=== PATIENT | female | born 1955 | race Caucasian/White ===

== ENCOUNTER → 2017-12-27 | Outpatient (CLI) | payer OTHER | END | disposition home or self-care (01) | LOC: C.MAMM 15:22 | PROVIDERS: ATTEND Nurse Practitioner | DX: M81.0 Age-related osteoporosis without current pathological fracture (principal) ==

== ENCOUNTER 2025-02-04 10:07 | Inpatient (IN) ==
--- NOTE | 2025-02-04 10:20 | Emergency Department Note ---
Impression & Plan Hypotension, Pneumonia, Leukocytosis, Anemia, Elevated lactic acid level ED Provider Note NAME: BUNNY CHERRY AGE: 69 SEX: F : 1955 ARRIVES VIA: Ambulance INFORMANT: [Patient][ems] ED PROVIDER(S): [Setf Adamson MD] CHIEF COMPLAINT: Hypotension HISTORY OF PRESENT ILLNESS: The patient is a 69-year-old female who states that last week, her doctor's office told her she had a lung infection and gave her antibiotics and steroids. She states that she was called by the pharmacy to start a second round of antibiotics today but has not yet picked up the prescription. Today, the patient was feeling dizzy and lightheaded to stand. She had a fall while she was at the sink, she is not sure if she lost consciousness, she is not sure if she struck her head but she was able to get up after. No current headache. The patient was hypoxic on the way to our ER, she was also hypotensive. Her blood pressure improved with a 500 cc saline bolus given in route. Patient currently denies any chest pain or dyspnea. No abdominal pain. She states that she only really seems to have symptoms when she tries to stand or move. Of note, the patient carries a history of hypertension, she did take her blood pressure medication this morning but, felt dizzy even before the meds were taken PMHx/PSHx/Social Hx: See Below PHYSICAL EXAM: GENERAL: Patient is in no acute distress. Thin and frail. HEENT: No acute trauma, normocephalic atraumatic, mucous membranes moist, no nasal congestion. NECK: No stridor, no adenopathy, no meningismus, trachea is midline. Nontender C-spine. LUNGS: Clear to auscultation bilaterally when listening anterior, no wheeze, no rhonchi, breath sounds equal. HEART: Without murmurs gallops or rubs, regular rate and rhythm. ABDOMEN: Soft, nontender, no peritonitis. EXTREMITIES: No cyanosis, full range of motion of all the joints without pain or difficulty. NEUROLOGIC: Oriented x 3, no acute motor or sensory deficits, no focal weakness. SKIN: No jaundice, no diaphoresis. Pale. DIFFERENTIAL DIAGNOSIS: Dehydration, bacteremia or sepsis, pneumonia, UTI, electrolyte imbalance, anemia, intracranial injury, among others. EMERGENCY DEPARTMENT PROCEDURES: MEDICAL DECISION MAKING: There is a significant leukocytosis, this would be consistent with infection. The patient is anemic with a hemoglobin of 7.4. I have no old values to use for comparison. Platelet count was high at 638. No worrisome coagulopathy. CBC differential did show findings of a bandemia. VBG did not show acidosis or significant CO2 retention. Sodium somewhat low at 130. No renal failure. Lactic acid level was elevated at over 3, this is consistent with dehydration and/or infection. No worrisome liver enzyme elevation. ECG showed a sinus rhythm, no ischemia or ST elevation. Cardiac enzyme testing x 1 is not consistent with acute cardiac injury. Urinalysis does not show findings of infection. Chest x-ray shows a right sided pneumonia. Chest CT does not show PE, a right sided pneumonia was seen. Brain CT shows no acute bleed or mass effect. C-spine CT shows no acute fracture. On exam, the patient was somewhat pale, appeared dehydrated and was initially hypotensive. The patient was aggressively managed. She received IV saline. She was given 1750 cc of IV saline in total when the 500 cc saline bolus prehospital is included. This should suffice for sepsis protocol at 30 cc/kg based on the actual body weight. The patient was given IV cefepime as antibiotic coverage. On reassessment, the patient's blood pressure has improved, she is not in need of IV pressors. I talked to the patient about her findings and the need for a hospital stay. I did speak with case management, the on-call hospitalist was consulted. Prior/Outside records/notes reviewed: Today's EMS notes describing her presentation and transport at this hospital. ECG per my interpretation: Indication was dizziness. The ECG shows a sinus rhythm with some PACs. The rate is 82. There is no ST elevation, no PVCs. The QTc is 462. Continuous Cardiac Monitoring per my interpretation: An order was placed for continuous cardiac monitoring. The monitor shows a rate of 81 with normal sinus rhythm. Imaging/x-ray results per my interpretation: Chest x-ray shows a right sided pneumonia. No pneumothorax or CHF. Chronic Medical/Social conditions affecting care: None Care/Management discussed with: Case management, the on-call hospitalist. Level of care consideration(s): After review of the information above and other included data: --I believe the patient requires escalation of care to admission Critical Care Note: I have personally spent 52 minutes of critical care time in the direct management of this patient. This includes bedside care, interpretation of diagnostic studies, and testing, discussion with consultants, patient, and family members, and other required patient management activities. This 52 minutes is in excess of all separately billable procedures. DISPOSITION: Admission Past Med/Surg History Problem List (Updated 02/04/25 @ 17:05 by Stef Adamson MD) Elevated lactic acid level (Acute) Anemia (Acute) Leukocytosis (Acute) Pneumonia (Acute) Hypotension (Acute) Sepsis Acute hypoxic respiratory failure Medical History Pneumonia Social History Smoking Status: Current every day smoker Tobacco Type: Cigarettes Cigarettes Per Day: 20-30; Second Hand Exposure: No; Do You Dip or Chew Tobacco: No; Tobacco Cessation Education Requested by Patient: No Hx Alcohol Use: No Hx Substance Use: Yes Substance Use Type Other:: carlos 02-03-25 Preferred Language: Swedish Communication Ability: Effective 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 Beliefs That Will Affect Care: None Current Living Situation: Alone Other Information That Helps Us Care for You: No Feels Safe at Home: Yes Safety Concerns: Feels Safe At This Time Assistive Devices: Glasses Assistive Devices Comment: partial bottom plate in on admit Allergies Allergies Allergy/AdvReac Type Severity Reaction Status Date / Time Sulfa (Sulfonamide Allergy Mild doesnt Unverified 02/04/25 13:20 Antibiotics) remember Home Meds Home Medications Medication Instructions Recorded Confirmed albuterol sulfate 0.63 mg/3 mL 0.63 mg inhalation UD PRN sob 02/04/25 02/04/25 solution for nebulization albuterol sulfate 90 mcg/actuation 1 puff inhalation Q6H PRN sob 02/04/25 02/04/25 aerosol inhaler fluticasone 250 mcg-salmeterol 50 1 inh inhalation BID 02/04/25 02/04/25 mcg/dose blistr powdr for inhalation gabapentin 300 mg capsule 300 mg PO BID 02/04/25 02/04/25 lisinopril 40 mg tablet 40 mg PO DAILY 02/04/25 02/04/25 meloxicam 7.5 mg tablet 7.5 mg PO BID 02/04/25 02/04/25 metformin 1,000 mg tablet 1,000 mg PO DAILY 02/04/25 02/04/25 tizanidine 4 mg tablet 4 mg PO Q6H PRN Muscle Spasm 02/04/25 02/04/25 Results & Data (ED) Vital Signs Vital Signs - 24 hr 02/04/25 10:07 02/04/25 10:30 02/04/25 10:31 Temperature 36.5 C Temperature Source Oral Pulse Rate 80 81 81 Pulse Rate [Apical] Pulse Rate from SpO2 Sensor Respiratory Rate 16 17 Respiratory Effort / Characteristics Non-Labored Spontaneous Respiratory Depth Normal Respiratory Pattern Regular Blood Pressure 88/63 L 113/69 Blood Pressure [Right Arm] Blood Pressure Mean 71 83 Blood Pressure Mean [Right Arm] Blood Pressure Position [Right Arm] Pulse Oximetry 90 Oxygen Delivery Method Sepsis Recent Fever Within 48 Hours No Sepsis New/Unexplained Change in Mental Status No Sepsis Action Taken by Nursing No Action Required 02/04/25 10:33 02/04/25 10:45 02/04/25 10:45 Temperature Temperature Source Pulse Rate 80 Pulse Rate [Apical] Pulse Rate from SpO2 Sensor 151 H Respiratory Rate 15 Respiratory Effort / Characteristics Respiratory Depth Respiratory Pattern Blood Pressure 120/71 120/71 Blood Pressure [Right Arm] Blood Pressure Mean 81 81 Blood Pressure Mean [Right Arm] Blood Pressure Position [Right Arm] Pulse Oximetry 90 Oxygen Delivery Method Room Air Room Air Sepsis Recent Fever Within 48 Hours Sepsis New/Unexplained Change in Mental Status Sepsis Action Taken by Nursing 02/04/25 11:00 02/04/25 12:06 02/04/25 12:33 Temperature Temperature Source Pulse Rate 80 83 83 Pulse Rate [Apical] Pulse Rate from SpO2 Sensor 81 82 81 Respiratory Rate 27 H 19 26 H Respiratory Effort / Characteristics Respiratory Depth Respiratory Pattern Blood Pressure 132/77 Blood Pressure [Right Arm] Blood Pressure Mean 99 Blood Pressure Mean [Right Arm] Blood Pressure Position [Right Arm] Pulse Oximetry 94 97 97 Oxygen Delivery Method Room Air Sepsis Recent Fever Within 48 Hours Sepsis New/Unexplained Change in Mental Status Sepsis Action Taken by Nursing 02/04/25 13:00 02/04/25 13:33 02/04/25 14:03 Temperature Temperature Source Pulse Rate 83 85 Pulse Rate [Apical] 84 Pulse Rate from SpO2 Sensor 83 Respiratory Rate 16 19 19 Respiratory Effort / Characteristics Non-Labored Spontaneous Respiratory Depth Normal Respiratory Pattern Regular Blood Pressure Blood Pressure [Right Arm] 179/84 H Blood Pressure Mean Blood Pressure Mean [Right Arm] 115 Blood Pressure Position [Right Arm] Semi-fowlers Pulse Oximetry 99 98 Oxygen Delivery Method Room Air Sepsis Recent Fever Within 48 Hours Sepsis New/Unexplained Change in Mental Status Sepsis Action Taken by Detention Medications Current Medication List: was personally reviewed by me Laboratory Data Attestation: I reviewed the patient's lab results. 02/04/25 10:35 02/04/25 10:35 Lab Results 02/04/25 02/04/25 02/04/25 Range/Units 10:35 10:53 12:30 WBC 22.46 H (4.8-10.8) K/ul RBC 3.11 L (4.20-5.40) M/uL Hgb 7.4 L (12.0-16.0) g/dl Hct 23.7 L (37.0-47.0) % MCV 76.2 L (80.0-100.0) fL MCH 23.8 L (25.0-34.0) pg MCHC 31.2 L (32.0-36.0) g/dL RDW Std Deviation 57.3 H (36.4-46.3) fL RDW Coeff of Omar 20.9 H (11.5-14.5) % Plt Count 638 H (130-400) K/uL MPV 9.3 L (9.4-12.4) fL Immature Gran % (Auto) 1.0 % Neut % (Auto) 87.0 % Lymph % (Auto) 5.7 % Haines % (Auto) 6.1 % Eos % (Auto) 0.0 % Baso % (Auto) 0.2 % Neut # (Auto) 19.53 H (1.40-6.50) K/uL Lymph # (Auto) 1.29 (1.20-3.40) K/uL Haines # (Auto) 1.36 H (0.11-0.59) K/uL Eos # (Auto) 0.01 (0.00-0.50) K/uL Baso # (Auto) 0.05 (0.00-0.20) K/uL Immature Gran # (Auto) 0.22 H (0.01-0.20) K/uL Anisocytosis Present PT 12.3 H (9.0-12.0) Seconds INR 1.1 (0.9-1.1) APTT 21 (21-31) Seconds PTT Ratio 0.8 VBG pH 7.37 (7.36-7.41) VBG pCO2 44 (38-50) mmHg VBG pO2 < 20 mmHg VBG HCO3 25 mmol/L VBG O2 Saturation < 60.0 % VBG Base Excess -0.2 mEq/L Sodium 130 L (136-145) mmol/L Potassium 4.6 (3.5-5.1) mmol/L Chloride 95 L (98-107) mmol/L Carbon Dioxide 25 (21-32) mmol/L Anion Gap 10 (3-11) BUN 13 (6-23) mg/dl Creatinine 0.56 L (0.6-1.2) mg/dl Est Cr Clr Drug Dosing 76.3 ml/min eGFR 98.73 BUN/Creatinine Ratio 23.2 H (10-20) Glucose 155 H (70-99(Fasting)) mg/dl Lactate 3.6 H* 2.3 H* (0.4-2.0) mmol/L Calcium 8.4 L (8.6-10.3) mg/dl Magnesium 1.7 (1.7-2.4) mg/dl Total Bilirubin 0.4 (0.2-1.0) mg/dl Direct Bilirubin 0.1 (0-0.2) mg/dl AST 9 L (13-39) U/L ALT 12 (7-52) U/L Alkaline Phosphatase 65 (34-104) U/L Troponin I High Sens 12.9 (0-14) pg/ml Total Protein 6.1 (6.0-8.3) gm/dl Albumin 2.9 L (3.4-5.0) gm/dl Procalcitonin 0.30 (0-0.5) ng/ml Urine Color Urine Appearance (Clear) Urine pH (4.5-7.5) Ur Specific Corea (1.000-1.030) Urine Protein (Negative) Urine Glucose (UA) (Negative) Urine Ketones (Negative) Urine Blood (Negative) Urine Nitrite (Negative) Urine Bilirubin (Negative) Urine Urobilinogen (Negative) Ur Leukocyte Esterase (Negative) Urine Comment 02/04/25 Range/Units 13:26 WBC (4.8-10.8) K/ul RBC (4.20-5.40) M/uL Hgb (12.0-16.0) g/dl Hct (37.0-47.0) % MCV (80.0-100.0) fL MCH (25.0-34.0) pg MCHC (32.0-36.0) g/dL RDW Std Deviation (36.4-46.3) fL RDW Coeff of Omar (11.5-14.5) % Plt Count (130-400) K/uL MPV (9.4-12.4) fL Immature Gran % (Auto) % Neut % (Auto) % Lymph % (Auto) % Haines % (Auto) % Eos % (Auto) % Baso % (Auto) % Neut # (Auto) (1.40-6.50) K/uL Lymph # (Auto) (1.20-3.40) K/uL Haines # (Auto) (0.11-0.59) K/uL Eos # (Auto) (0.00-0.50) K/uL Baso # (Auto) (0.00-0.20) K/uL Immature Gran # (Auto) (0.01-0.20) K/uL Anisocytosis PT (9.0-12.0) Seconds INR (0.9-1.1) APTT (21-31) Seconds PTT Ratio VBG pH (7.36-7.41) VBG pCO2 (38-50) mmHg VBG pO2 mmHg VBG HCO3 mmol/L VBG O2 Saturation % VBG Base Excess mEq/L Sodium (136-145) mmol/L Potassium (3.5-5.1) mmol/L Chloride (98-107) mmol/L Carbon Dioxide (21-32) mmol/L Anion Gap (3-11) BUN (6-23) mg/dl Creatinine (0.6-1.2) mg/dl Est Cr Clr Drug Dosing ml/min eGFR BUN/Creatinine Ratio (10-20) Glucose (70-99(Fasting)) mg/dl Lactate (0.4-2.0) mmol/L Calcium (8.6-10.3) mg/dl Magnesium (1.7-2.4) mg/dl Total Bilirubin (0.2-1.0) mg/dl Direct Bilirubin (0-0.2) mg/dl AST (13-39) U/L ALT (7-52) U/L Alkaline Phosphatase (34-104) U/L Troponin I High Sens (0-14) pg/ml Total Protein (6.0-8.3) gm/dl Albumin (3.4-5.0) gm/dl Procalcitonin (0-0.5) ng/ml Urine Color Yellow Urine Appearance Clear (Clear) Urine pH 7.0 (4.5-7.5) Ur Specific Corea 1.013 (1.000-1.030) Urine Protein Negative (Negative) Urine Glucose (UA) Negative (Negative) Urine Ketones Negative (Negative) Urine Blood Negative (Negative) Urine Nitrite Negative (Negative) Urine Bilirubin Negative (Negative) Urine Urobilinogen Negative (Negative) Ur Leukocyte Esterase Negative (Negative) Urine Comment Administered Medications Albuterol (Albut/Ipratrop 3mg/0.5mg Neb 3 Ml Vial) 3 ml NEB QIDR MONSE; Protocol Stop: 03/06/25 14:59 Last Admin: 02/04/25 16:40 Dose: Not Given Documented By: LISBET Sodium Chloride (Nss) 1,000 mls @ 80 mls/hr IV .[id number] [facility] Stop: 02/07/25 15:14 Last Admin: 02/04/25 16:46 Dose: 80 mls/hr Documented By: PINEDA Insulin Aspart (Insulin Aspart Per Unit Charge) 0 units SC ACHS MONSE Stop: 03/06/25 16:29 Last Admin: 02/04/25 16:47 Dose: Not Given Documented By: PINEDA Discontinued Medications Sodium Chloride (Nss) 500 mls @ 999 mls/hr IV .Q31M ONE Stop: 02/04/25 10:48 Last Infusion: 02/04/25 11:46 Dose: Infused Documented By: Admin: 02/04/25 10:43 Dose: 999 mls/hr Documented By: GERTRUDE Cefepime HCl (Maxipime 2000mg) 2,000 mg in 20 mls @ 5 mls/min IV NOW STA; Protocol Stop: 02/04/25 10:21 Last Admin: 02/04/25 10:55 Dose: 5 mls/min Documented By: GERTRUDE Sodium Chloride (Nss) 500 mls @ 999 mls/hr IV .Q31M ONE Stop: 02/04/25 11:56 Last Infusion: 02/04/25 13:20 Dose: Infused Documented By: Admin: 02/04/25 12:28 Dose: 999 mls/hr Documented By: CEF Sodium Chloride (Nss) 250 mls @ 999 mls/hr IV .Q16M ONE Stop: 02/04/25 11:41 Last Infusion: 02/04/25 13:08 Dose: Infused Documented By: Admin: 02/04/25 12:28 Dose: 999 mls/hr Documented By: CEF Piperacillin Sod/Tazobactam Sod (Zosyn) 4.5 gm in 100 mls @ 200 mls/hr IV NOW ONE Stop: 02/04/25 15:14 Last Infusion: 02/04/25 16:24 Dose: Infused Documented By: Admin: 02/04/25 15:21 Dose: 200 mls/hr Documented By: OCTAVIA Vancomycin HCl 1,250 mg/ (Sodium Chloride) 275 mls @ 200 mls/hr IV NOW ONE Stop: 02/04/25 16:07 Last Admin: 02/04/25 16:46 Dose: 200 mls/hr Documented By: PINEDA Ioversol (Optiray 320 125ml) 59 ml IV ONCE ONE Stop: 02/04/25 11:48 Last Admin: 02/04/25 11:47 Dose: 59 ml Documented By: REGGIE Imaging Data Radiologist's Impression: Chest X-Ray 02/04/25 10:18 XR chest 1V portable CLINICAL HISTORY: Sepsis. COMPARISON STUDY: Chest CT November 28, 2024. Chest radiograph November 17, 2024. FINDINGS: There is no pneumothorax. A suspected small right pleural effusion is present. Dense right mid and lower lung consolidation has developed since prior chest radiograph and chest CT. Elevation of the right hemidiaphragm has increased. Right upper lobe opacities have improved. Right apical cavity persists. No evidence for pulmonary edema. IMPRESSION: 1. Interval development of dense right mid and lower lung consolidation with evidence for volume loss. This favors pneumonia. However, radiographic follow-up to ensure resolution is recommended to exclude the possibility of an underlying lesion. 2. Interval improvement in upper lobe airspace opacities with residual right apical cavity. 3. Small right pleural effusion. ACT 112: Negative or not required by law. Electronically signed by: Kleber Perez M.D. 02/04/2025 11:[address] 02/04/25 10:20 CT cervical spine wo con CT DOSE: 1232.4 mGy.cm CLINICAL HISTORY: 69 years-old Female with fall. Acute neck trauma status post fall COMPARISON: Head CT CTA chest study of same day TECHNIQUE: Multiple axial CT images of the cervical spine were obtained without contrast. A dose lowering technique was utilized adhering to the principles of ALARA. FINDINGS: Straightening of the normal cervical lordosis. Demineralized appearance of the bones. Prior posterior decompression with posterior interbody rods and screw fusion at C3-C6. No evidence of hardware complication on this study. Moderate to severe intervertebral disc space narrowing at C5-C6 and C6-C7 with moderate anterior bridging osteophytosis at these levels. Moderate multilevel facet arthrosis. No acute fracture or subluxation identified. Suboptimal evaluation of the central canal and neural foramen by CT technique. Emphysema. Thick-walled large cavitary focus of the right lung apex with loculated right pleural effusion. Mild wall thickening of the proximal esophagus. The visualized lung apices appear clear. IMPRESSION: 1. No acute cervical spine fracture or subluxation. 2. Degenerative and postoperative changes of the cervical spine as above. 3. Please refer to the same day CTA of the chest for discussion of the pulmonary findings. ACT 112: Negative or not required by law. The above report was generated using voice recognition software. It may contain grammatical, syntax or spelling errors. Electronically signed by: Ger Salinas M.D. 02/04/2025 12:[address] 02/04/25 10:20 CT SCAN OF THE BRAIN WITHOUT IV CONTRAST CLINICAL HISTORY: Fall. COMPARISON STUDY: None. TECHNIQUE: Unenhanced axial CT scan of the brain was performed from the vertex to the skull base. A dose lowering technique was utilized adhering to the principles of ALARA. FINDINGS: Brain parenchyma: No acute intracranial hemorrhage, midline shift or mass effect is present. Armas-white matter differentiation is preserved. There are no extra- axial fluid collections. There are no findings to suggest acute dural sinus thrombosis or acute territorial infarct. Armas-white matter hypodensities are suggestive of small vessel disease. Ventricles, sulci, cisterns: There is no hydrocephalus. The basal cisterns are patent. Calvarium: No calvarial fractures. Sinuses and mastoids: The visualized paranasal sinuses are clear. The mastoid air cells are well pneumatized. Orbits: The bony orbits are grossly intact. IMPRESSION: 1. No acute intracranial findings. 2. No calvarial fractures. ACT 112: Negative or not required by law. Electronically signed by: Kleber Perez M.D. 02/04/2025 11:54 AM Chest CTA 02/04/25 11:25 CT ANGIOGRAM OF THE CHEST CLINICAL HISTORY: Fall. Dyspnea. Pneumonia. COMPARISON STUDY: Chest CT scans dated 11/28/2024 and 1210 and 19. Chest x-ray dated 02/04/2025. TECHNIQUE: Following the IV administration of 59 cc of Optiray 320, CT angiogram of the chest was performed from the upper abdomen to the thoracic inlet utilizing the pulmonary embolus protocol. Images are reviewed in the axial, sagittal, and coronal planes. 3-D MIPS images are created and assessed. IV contrast was administered without complication. A dose lowering technique was utilized adhering to the principles of ALARA. There is streak artifact from the right arm which could not be elevated of the chest. There is also mild motion artifact. FINDINGS: Thyroid: Imaged portions of the thyroid gland are normal in size and attenuation. Thoracic aorta: There is atherosclerotic calcification of the thoracic aorta, which is normal in caliber and demonstrates standard 3-vessel arch anatomy. No dissection is seen. Pulmonary vasculature: The pulmonary trunk is normal in caliber. There are no filling defects identified in main, lobar, or segmental pulmonary branches to suggest pulmonary embolus. Heart: The heart is normal in size and without pericardial effusion. The coronary arteries are densely calcified. Lungs and pleural spaces: Evaluation of the lung parenchyma is modestly degraded by motion artifact. There is moderate emphysematous change. The trachea and central airways are clear. There is multiloculated appearing masslike consolidation throughout the right lung with cavitation and pockets of necrosis/fluid which extends from the lung base to the apex along the major fissure and in the paramediastinal region A loculation at the right apex measures approximately 7.5 x 6 x 4 cm and is similar in appearance to the 11/28/2024 examination. Paramediastinal consolidation cavitation is has somewhat increased from previous, and masslike consolidation extending into the right lower lobe along the major fissure is new from 11/28/2024. This measures approximately 14 x 8 x 7 cm in aggregate dimension. A subpleural focus of cavitary consolidation in the right upper lobe on image #174 has decreased in size from 11/28/2024. This measures approximately 3 x 1.5 cm. There is associated soft tissue thickening in the right hilar region. There are scattered calcific granulomas. There is trace pleural fluid right lung base. No airspace consolidation is seen in the left lung. A 5 mm left upper lobe pulmonary nodule on image #160 is unchanged. Mediastinum: There are calcified subcarinal nodes. No discrete lymphadenopathy is seen. Maritza: Enlarged right hilum measuring up to 11 mm short axis. No left hilar adenopathy is seen. Axillae: There is no axillary lymphadenopathy. Upper abdomen: Partially visualized upper abdominal viscera is within normal limits. Skeletal structures: The skeletal structures are osteopenic. Degenerative change and mild hyperkyphosis is noted in the thoracic spine. No lytic or blastic bony lesions are seen. IMPRESSION: 1. There is no evidence of pulmonary embolus in the main, lobar, or segmental pulmonary arteries. 2. Emphysema. 3. Extensive masslike consolidation with cavitation is seen in the right lung extending from the apex to the base along the major fissure and in the paramediastinal region as detailed above. A large right lower lobe component is new from 11/28/2024, in the appearance/time course favors a necrotizing/cavitary pneumonia. An underlying neoplastic process would be impossible to exclude. Pulmonology evaluation is advised, and follow-up to resolution is recommended. 4. A separate focus of cavitary consolidation in the right upper lobe seen on 11/28/2024 has decreased in size from previous. 5. No airspace consolidation is seen in the left lung. 6. A 5 mm left upper lobe pulmonary nodule is unchanged. 7. Additional findings as above. ACT 112: Negative or not required by law. Electronically signed by: Stef Ovalle M.D. 02/04/2025 12:19 PM Discharge Plan Visit Data Chief Complaint: Hypotension Stated Complaint: HYPOTENSION, FALL, HYPOXIA ED Provider: Stef Adamson Discharge Problem: Hypotension, Pneumonia, Leukocytosis, Anemia, Elevated lactic acid level Patient Disposition: Admitted As Inpatient Condition: Serious Discharge Instructions Interventions: ED Discharge Assessment Last Done: 02/04/25 15:30 Discharge Problem: Hypotension Qualifiers: Hypotension type: unspecified hypotension type Qualified Code(s): I95.9 - Hypotension, unspecified Pneumonia Qualifiers: Pneumonia type: due to unspecified organism Laterality: right Lung location: u nspecified part of lung Qualified Code(s): J18.9 - Pneumonia, unspecified organism Leukocytosis Qualifiers: Leukocytosis type: unspecified Qualified Code(s): D72.829 - Elevated white blood cell count, unspecified Anemia Qualifiers: Anemia type: unspecified type Qualified Code(s): D64.9 - Anemia, unspecified
[2025-02-04] MEDS: SODIUM CHLORIDE 0.9% 500 ML IV ONE ×2 (10:43→12:28)
[2025-02-04 10:52] LABS: Hematocrit (blood only) 23.7 % (37.0-47.0); Hemoglobin 7.4 g/dl (12.0-16.0); Immature Granulocytes # (auto) 0.22 K/uL (0.01-0.20); Immature Granulocytes % (auto) 1.0 %; Mean Corpuscular Hemoglobin 23.8 pg (25.0-34.0); Mean Corpuscular Volume 76.2 fL (80.0-100.0); Platelet Count 638 K/uL (130-400); RDW Standard Deviation 57.3 fL (36.4-46.3); Red Blood Count 3.11 M/uL (4.20-5.40); White Blood Count 22.46 K/ul (4.8-10.8)
[2025-02-04] MEDS: CEFEPIME 2000MG 2,000 MG/20 ML SYR IV STA (10:55)
--- NOTE | 2025-02-04 11:01 | XRay Report ---
XR chest 1V portable CLINICAL HISTORY: Sepsis. COMPARISON STUDY: Chest CT November 28, 2024. Chest radiograph November 17, 2024. FINDINGS: There is no pneumothorax. A suspected small right pleural effusion is present. Dense right mid and lower lung consolidation has developed since prior chest radiograph and chest CT. Elevation o f the right hemidiaphragm has increased. Right upper lobe opacities have improved. Right apical cavit y persists. No evidence for pulmonary edema. IMPRESSION: 1. Interval development of dense right mid and lower lung consolidation with evidence for volume loss . This favors pneumonia. However, radiographic follow-up to ensure resolution is recommended to exclu de the possibility of an underlying lesion. 2. Interval improvement in upper lobe airspace opacities with residual right apical cavity. 3. Small right pleural effusion. ACT 112: Negative or not required by law. Electronically signed by: Kleber Perez M.D. 02/04/2025 11:00 AM
[2025-02-04 11:14] LABS: Base Excess VBG -0.2 mEq/L; HCO3 VBG 25 mmol/L; Oxygen Saturation VBG < 60.0 %; PCO2 VBG 44 mmHg (38-50); PO2 VBG < 20 mmHg; pH VBG 7.37 (7.36-7.41)
[2025-02-04 11:18] LABS: Anisocytosis Present
[2025-02-04 11:19] LABS: Alanine Aminotransferase 12.0 U/L (7-52); Alkaline Phosphatase 65.0 U/L (34-104); Anion Gap 10.0 (3-11); Bilirubin,Total 0.4 mg/dl (0.2-1.0); Blood Urea Nitrogen 13.0 mg/dl (6-23); Calcium 8.4 mg/dl (8.6-10.3); Carbon Dioxide 25.0 mmol/L (21-32); Chloride 95.0 mmol/L (98-107); Creatinine Clr Calc Pharmacy 76.3 ml/min; Glucose 155.0 mg/dl (70-99(Fasting)); Magnesium 1.7 mg/dl (1.7-2.4); Potassium 4.6 mmol/L (3.5-5.1); Sodium 130.0 mmol/L (136-145); Total Protein 6.1 gm/dl (6.0-8.3)
[2025-02-04 11:31] LABS: INR 1.1 (0.9-1.1); Partial Thromboplastin Time 21 Seconds (21-31); Prothrombin Time 12.3 Seconds (9.0-12.0)
[2025-02-04] MEDS: OPTIRAY 320 125ml IV ONE (11:47)
--- NOTE | 2025-02-04 11:56 | CT Scan Report ---
CT SCAN OF THE BRAIN WITHOUT IV CONTRAST CLINICAL HISTORY: Fall. COMPARISON STUDY: None. TECHNIQUE: Unenhanced axial CT scan of the brain was performed from the vertex to the skull base. A dose lowering technique was utilized adhering to the principles of ALARA. FINDINGS: Brain parenchyma: No acute intracranial hemorrhage, midline shift or mass effect is present. Armas-whi te matter differentiation is preserved. There are no extra-axial fluid collections. There are no find ings to suggest acute dural sinus thrombosis or acute territorial infarct. Armas-white matter hypodens ities are suggestive of small vessel disease. Ventricles, sulci, cisterns: There is no hydrocephalus. The basal cisterns are patent. Calvarium: No calvarial fractures. Sinuses and mastoids: The visualized paranasal sinuses are clear. The mastoid air cells are well pneu matized. Orbits: The bony orbits are grossly intact. IMPRESSION: 1. No acute intracranial findings. 2. No calvarial fractures. ACT 112: Negative or not required by law. Electronically signed by: Kleber Perez M.D. 02/04/2025 11:54 AM
--- NOTE | 2025-02-04 12:14 | CT Scan Report ---
CT cervical spine wo con CT DOSE: 1232.4 mGy.cm CLINICAL HISTORY: 69 years-old Female with fall. Acute neck trauma status post fall COMPARISON: Head CT CTA chest study of same day TECHNIQUE: Multiple axial CT images of the cervical spine were obtained without contrast. A dose low ering technique was utilized adhering to the principles of ALARA. FINDINGS: Straightening of the normal cervical lordosis. Demineralized appearance of the bones. Prior posterior decompression with posterior interbody rods and screw fusion at C3-C6. No evidence of hard craig complication on this study. Moderate to severe intervertebral disc space narrowing at C5-C6 and C6-C7 with moderate anterior bridging osteophytosis at these levels. Moderate multilevel facet arthro sis. No acute fracture or subluxation identified. Suboptimal evaluation of the central canal and neur al foramen by CT technique. Emphysema. Thick-walled large cavitary focus of the right lung apex with loculated right pleural effu armen. Mild wall thickening of the proximal esophagus. The visualized lung apices appear clear. IMPRESSION: 1. No acute cervical spine fracture or subluxation. 2. Degenerative and postoperative changes of the cervical spine as above. 3. Please refer to the same day CTA of the chest for discussion of the pulmonary findings. ACT 112: Negative or not required by law. The above report was generated using voice recognition software. It may contain grammatical, syntax o r spelling errors. Electronically signed by: Ger Salinas M.D. 02/04/2025 12:12 PM
--- NOTE | 2025-02-04 12:21 | CT Scan Report ---
CT ANGIOGRAM OF THE CHEST CLINICAL HISTORY: Fall. Dyspnea. Pneumonia. COMPARISON STUDY: Chest CT scans dated 11/28/2024 and 1210 and 19. Chest x-ray dated 02/04/2025. TECHNIQUE: Following the IV administration of 59 cc of Optiray 320, CT angiogram of the chest was per formed from the upper abdomen to the thoracic inlet utilizing the pulmonary embolus protocol. Images are reviewed in the axial, sagittal, and coronal planes. 3-D MIPS images are created and assessed. IV contrast was administered without complication. A dose lowering technique was utilized adhering to the principles of ALARA. There is streak artifact from the right arm which could not be elevated of t he chest. There is also mild motion artifact. FINDINGS: Thyroid: Imaged portions of the thyroid gland are normal in size and attenuation. Thoracic aorta: There is atherosclerotic calcification of the thoracic aorta, which is normal in noemi matt and demonstrates standard 3-vessel arch anatomy. No dissection is seen. Pulmonary vasculature: The pulmonary trunk is normal in caliber. There are no filling defects identif ied in main, lobar, or segmental pulmonary branches to suggest pulmonary embolus. Heart: The heart is normal in size and without pericardial effusion. The coronary arteries are densel y calcified. Lungs and pleural spaces: Evaluation of the lung parenchyma is modestly degraded by motion artifact. There is moderate emphysematous change. The trachea and central airways are clear. There is multilocu lated appearing masslike consolidation throughout the right lung with cavitation and pockets of necro sis/fluid which extends from the lung base to the apex along the major fissure and in the paramediast inal region A loculation at the right apex measures approximately 7.5 x 6 x 4 cm and is similar in ap pearance to the 11/28/2024 examination. Paramediastinal consolidation cavitation is has somewhat incre ased from previous, and masslike consolidation extending into the right lower lobe along the major fi ssure is new from 11/28/2024. This measures approximately 14 x 8 x 7 cm in aggregate dimension. A subp leural focus of cavitary consolidation in the right upper lobe on image #174 has decreased in size fr om 11/28/2024. This measures approximately 3 x 1.5 cm. There is associated soft tissue thickening in t he right hilar region. There are scattered calcific granulomas. There is trace pleural fluid right margarita ng base. No airspace consolidation is seen in the left lung. A 5 mm left upper lobe pulmonary nodule on image #160 is unchanged. Mediastinum: There are calcified subcarinal nodes. No discrete lymphadenopathy is seen. Maritza: Enlarged right hilum measuring up to 11 mm short axis. No left hilar adenopathy is seen. Axillae: There is no axillary lymphadenopathy. Upper abdomen: Partially visualized upper abdominal viscera is within normal limits. Skeletal structures: The skeletal structures are osteopenic. Degenerative change and mild hyperkyphos is is noted in the thoracic spine. No lytic or blastic bony lesions are seen. IMPRESSION: 1. There is no evidence of pulmonary embolus in the main, lobar, or segmental pulmonary arteries. 2. Emphysema. 3. Extensive masslike consolidation with cavitation is seen in the right lung extending from the apex to the base along the major fissure and in the paramediastinal region as detailed above. A large rig ht lower lobe component is new from 11/28/2024, in the appearance/time course favors a necrotizing/cav itary pneumonia. An underlying neoplastic process would be impossible to exclude. Pulmonology evaluat ion is advised, and follow-up to resolution is recommended. 4. A separate focus of cavitary consolidation in the right upper lobe seen on 11/28/2024 has decreased in size from previous. 5. No airspace consolidation is seen in the left lung. 6. A 5 mm left upper lobe pulmonary nodule is unchanged. 7. Additional findings as above. ACT 112: Negative or not required by law. Electronically signed by: Stef Ovalle M.D. 02/04/2025 12:19 PM
[2025-02-04] MEDS: SODIUM CHLORIDE 0.9% 250 ML IV ONE (12:28)
[2025-02-04 13:36] LABS: Appearance Urine Clear (Clear); Glucose Urine UA Negative (Negative)
[2025-02-04] MEDS ORDERED: POLYETHYLENE (MIRALAX) 17 GM PACK PO PRN (14:24)
[2025-02-04] MEDS ORDERED: MAGNESIUM HYDROXIDE SUSP 30 ML UDC PO PRN (14:24)
[2025-02-04] MEDS ORDERED: VANCOMYCIN HCL 1,000 MG in SODIUM CHLORIDE 0.9% 500 ML IV ONE (14:24)
[2025-02-04] MEDS ORDERED: ACETAMINOPHEN 325 MG TAB PO PRN (14:24)
[2025-02-04] MEDS ORDERED: VANCOMYCIN CONSULT ACTIVE PRN (14:24)
--- NOTE | 2025-02-04 14:37 | History & Physical Report ---
Date of Service February 04, 2025 Assessment & Plan (1) Pneumonia: (2) Acute hypoxic respiratory failure: (3) Sepsis: Plan Acute hypoxic respiratory failure Sepsis POA Pneumonia Patient presents with hypotension, fall. History of cough, weight loss, shortness of breath, hemoptysis since September 2024 with multiple round of antibiotics Leukocytosis present Lactate elevated on admission to 3.6 and down trended Pro-Luis of 0.30 CTA chest on admission as follows: "No PE, emphysema. Extensive masslike consolidation with cavitation is seen in the right lung extending from the apex to the base along the major fissure and in the paramediastinal region as detailed above. A large right lower lobe component is new from 11/28/2024, in the appearance/time course favors a necrotizing/cavitary pneumonia. An underlying neoplastic process would be impossible to exclude. Pulmonology evaluation is advised, and follow-up to resolution is recommended. A separate focus of cavitary consolidation in the right upper lobe seen on 11/28/2024 has decreased in size from previous. A 5 mm left upper lobe pulmonary nodule is unchanged." Will start antibiotics with Zosyn, and doxycycline and vancomycin. Obtain MRSA nares, sputum culture Every 6 hours DuoNebs, budesonide and formoterol nebs Given the non-resolving nature of the pneumonia along with symptoms of weight loss; possibility of malignancy - discussed with patient/son. will obtain pulmonology evaluation. npo from midnight Will obtain fungal infection workup, acid fast sputum, cx,blood cx; will obtain infectious disease eval. speech eval Anemia -hemoglobin of 7.4 on admission; hemoglobin of 8.4 on lab work couple of weeks back; will obtain iron profile, vitamin B12. Patient reports hemoptysis which could contribute towards it Hyponatremia-likely hypovolemic hyponatremia; will obtain urine osmolarity, urine electrolytes; continue normal saline; follow-up BMP in a.m. Hypertensionhold lisinopril for now COPDnot on exacerbation; on budesonide, formoterol nebs and DuoNebs Type 2 diabetes mellitusinsulin sliding scale DNR/DNI as per discussion with the patient DVT prophylaxisSCDs given hemoptysis Plan of care discussed with patient's son over the phone at bedside; he is in agreement with the plan. Time spent evaluating patient, direct bedside care, chart review, placing orders, interpretation of diagnostic studies, discussion with consultants, patient, and family members, as well as other required patient management activities is 75 minutes Please note the above document was generated using voice recognition software. It may contain grammatical, syntax or spelling errors. Any formal questions or concerns about the content, text or information contained within the body of this dictation should be directly addressed to the provider for clarification History of Present Illness Primary Care Provider: Angeline Pedraza MD Past medical history of COPD on Wixela/Spiriva, hypertension, type 2 diabetes, chronic smoker. Patient has symptoms of fatigue, cough and decreased appetite which is started in of this year; was treated with course of antibiotic/steroid; her cough returns after completion of antibiotics/steroids. She was again treated with another course of antibiotic in October. She underwent CT scan in November,; findings are below "Above imaging findings of patchy areas of consolidation scattered within right lung with mild bronchiectatic changes and scattered area of atelectatic bands and mildly enlarged mediastinal and hilar lymph nodes are likely keeping with infective in etiology. Interval development of another nodule/nodular infiltrate of 8 mm in right lower lobe, could be due to ongoing infection-probably benign. Possible nodular thickening along right para- mediastinal region, likely infective/extension of consolidation. Other less likely possibility of suspicious infrahilar lymph node cannot be entirely excluded. Clinical, relevant labs, sputum/ analysis correlation for further evaluation. Short interval follow up CT at 3 months is also advised to look for interval resolution She was again treated with another course of antibiotics in December and was referred to pulmonology and oncology. Seen by oncology for anemia/unintentional weight loss on 01/21/2025; patient has issues with bronchitis and pneumonia since October 2024; has been treated with antibiotic and steroid for at least 3 times. She was then seen by pulmonology again; discussed follow-up in [address] scan, PFT; possible PET/CT scan. She was again prescribed another course of antibiotics. She presents again today with reports of feeling dizzy and lightheaded and had a fall. She was found to be hypotensive and hypoxic on presentation. She underwent chest x-ray concerning for right-sided pneumonia. She underwent CTA chest; found to have extensive masslike consolidation with cavitation seen in right lung extending from apex to the base along the major fissure and in the paramediastinal region. Large right lower lobe component seen on 11/28/2024.Patient also reports hemoptysis which started several months back; continues to persist. She was found to have leukocytosis, hemoglobin of 7.4 (hemoglobin of 8.4 on 01/21), hyponatremia, elevated lactic acid. Patient was given dose of cefepime and was referred for admission. Allergies Allergy/AdvReac Type Severity Reaction Status Date / Time Sulfa (Sulfonamide Allergy Mild doesnt Unverified 02/04/25 13:20 Antibiotics) remember Home Medications Medication Instructions Recorded Confirmed Type albuterol sulfate 0.63 mg/3 mL 0.63 mg inhalation UD PRN sob 02/04/25 02/04/25 History solution for nebulization albuterol sulfate 90 mcg/actuation 1 puff inhalation Q6H PRN sob 02/04/25 02/04/25 History aerosol inhaler fluticasone 250 mcg-salmeterol 50 1 inh inhalation BID 02/04/25 02/04/25 History mcg/dose blistr powdr for inhalation gabapentin 300 mg capsule 300 mg PO BID 02/04/25 02/04/25 History lisinopril 40 mg tablet 40 mg PO DAILY 02/04/25 02/04/25 History meloxicam 7.5 mg tablet 7.5 mg PO BID 02/04/25 02/04/25 History metformin 1,000 mg tablet 1,000 mg PO DAILY 02/04/25 02/04/25 History tizanidine 4 mg tablet 4 mg PO Q6H PRN Muscle Spasm 02/04/25 02/04/25 History Past Med/Surg History Problem List (Updated 02/04/25 @ 14:53 by Sarkis Shen MD) Sepsis Acute hypoxic respiratory failure Pneumonia Social History Smoking Status: Current every day smoker Preferred Language: Uzbek Feels Safe at Home: Yes Physical Exam Physical Exam: Constitutional: Alert oriented x 3; not in distress. Appears comfortable at Respiratory: Bilateral decreased air entry; no breath sounds in right middle lung field Cardiovascular: RRR, no murmur, no edema Vessels: no JVD or carotid bruit Chest: normal inspection of chest Abdomen: normal bowel sounds, soft, nontender, no hepatosplenomegaly Musculoskeletal: no cyanosis or clubbing, extremities motor strength 5/5 Skin: no rashes, warm and dry normal turgor Neurologic: PERRL, EOMI, accommodation nl, no face palsy, no dysarthria CN's II- XI intact bilaterally and moves all extremities Psychiatric: A+Ox3, euthymic affect Results & Data Results & Data Vital Signs (Past 12 Hours) Vital Signs Temp Pulse Pulse Resp BP BP Pulse Ox 02/04/25 14:27 86 02/04/25 13:00 84 16 179/84 H 99 02/04/25 11:00 80 27 H 132/77 94 02/04/25 10:45 80 15 120/71 90 02/04/25 10:45 120/71 02/04/25 10:33 02/04/25 10:31 81 02/04/25 10:30 81 17 113/69 02/04/25 10:07 36.5 C 80 16 88/63 L 90 O2 Del Method 02/04/25 14:27 02/04/25 13:00 Room Air 02/04/25 11:00 Room Air 02/04/25 10:45 Room Air 02/04/25 10:45 02/04/25 10:33 Room Air 02/04/25 10:31 02/04/25 10:30 02/04/25 10:07 Code Status & VTE Plan VTE Prophylaxis Plan VTE Prophylaxis will be ordered: Yes
[2025-02-04] MEDS: PIPERACILLIN/TAZOBACTAM 4.5 GM/100 ML BAG IV ONE (15:21)
[2025-02-04] MEDS ORDERED: CARBOHYDRATES FOR HYPOGLYCEMIA PO PRN (15:59)
[2025-02-04] MEDS ORDERED: GLUCOSE 10 TAB/TUBE PO PRN (15:59)
[2025-02-04] MEDS ORDERED: PHARMACY GLYCEMIC MGMT CONSULT PRN (15:59)
[2025-02-04] MEDS ORDERED: GLUCAGON FOR INJ 1 MG VIAL SQ PRN (15:59)
[2025-02-04] MEDS ORDERED: DEXTROSE 50% 50 ML SYRINGE IV PRN (15:59)
[2025-02-04] MEDS ORDERED: GLUCOSE 40% GEL 15 GM TUBE PO PRN (15:59)
--- NOTE | 2025-02-04 16:07 | Pulmonary Consultation ---
Date of Consultation February 04, 2025 Assessment & Plan (1) Multifocal pneumonia: (2) Abnormal chest CT: (3) COPD with emphysema: (4) Pulmonary cavitary lesion: (5) Hemoptysis: Plan CT chest 02/04/2025 personally reviewed: Right apical 6 cm x 3.8 cm thick cavitary lesion Another cavitary lesion with mass appreciated in the right lower lobe 5 mm left upper lobe pulmonary nodule, unchanged Minimal right hilar lymphadenopathy -- Multiple cavitary lesions with masslike consolidation in the right lower lobe With unintentional weight loss of approximately 20 pounds Failed multiple antibiotics as an outpatient Patient had right upper lobe 2 cavitary lesions back in November 2024 Part of the lesion in the right upper lobe seems to be decreasing in size on the latest CAT scan of the chest The right lower lobe cavitary lesion with consolidative process is new Goal QuantiFERON negative 10/16/2024 Procalcitonin 0.3 --COPD > [id number] active smoker On Wixela 250 at home Plan: The probability of tuberculosis is low given the negative gold QuantiFERON. Possibility of indolent infection which is not responding to antibiotics versus malignancy in somebody who is a heavy smoker is high Continue with antibiotics with anaerobic coverage as well as atypical coverage. N.p.o. postmidnight for bronchoscopy in the OR tomorrow with EBUS Risk and benefit of the procedure explained to the patient as well as patient's daughter and son who are in the room in depth. Patient understands and wants to go ahead with the procedures All questions and queries were answered in depth. I spent more than 75 minutes looking in the chart, images, discussing the plan of care with the patient, RN as well as primary team Please note the above document was generated using voice recognition software. It may contain grammatical, syntax or spelling errors.Any formal questions or concerns about the content, text or information contained within the body of this dictation should be directly addressed to the provider for clarification. History of Present Illness Attending Physician: Sarkis Shen MD History of Present Illness 69-year-old female admitted to the hospital with cough and shortness of breath Past medical history: Hypertension, diabetes type 2 Pulmonary consulted for abnormal chest CT Patient's son and daughter were in the room at the time of examination. Patient says that she has been having issues with cough which has been going on since at least October 2024 She had a chest x-ray done around that time which showed cavitary lesion this was followed by gold QuantiFERON which was negative She had a CAT scan of the chest done in November 2024 which showed cavitary lesion, approximately 4 rounds of antibiotics were given to the patient with some improvement but symptoms seems to be coming back. Patient denies any dysuria, no diarrhea No unusual headache or blurry vision Has been complaining of hemoptysis on and off. Approximate 20 pound weight loss unintentional. Does bring up copious amount of phlegm. Social history: >60 pack year smoking history. Currently smoking a pack a day Has a dog at home. No birds or poultry nearby No history of lung cancer in the family Allergies Allergy/AdvReac Type Severity Reaction Status Date / Time Sulfa (Sulfonamide Allergy Mild doesnt Unverified 02/04/25 13:20 Antibiotics) remember Home Medications Medication Instructions Recorded Confirmed Type albuterol sulfate 0.63 mg/3 mL 0.63 mg inhalation UD PRN sob 02/04/25 02/04/25 History solution for nebulization albuterol sulfate 90 mcg/actuation 1 puff inhalation Q6H PRN sob 02/04/25 02/04/25 History aerosol inhaler fluticasone 250 mcg-salmeterol 50 1 inh inhalation BID 02/04/25 02/04/25 History mcg/dose blistr powdr for inhalation gabapentin 300 mg capsule 300 mg PO BID 02/04/25 02/04/25 History lisinopril 40 mg tablet 40 mg PO DAILY 02/04/25 02/04/25 History meloxicam 7.5 mg tablet 7.5 mg PO BID 02/04/25 02/04/25 History metformin 1,000 mg tablet 1,000 mg PO DAILY 02/04/25 02/04/25 History tizanidine 4 mg tablet 4 mg PO Q6H PRN Muscle Spasm 02/04/25 02/04/25 History Patient History Medical History Pneumonia Social History Smoking Status: Current every day smoker Tobacco Type: Cigarettes Cigarettes Per Day: 20-30; Second Hand Exposure: No; Do You Dip or Chew Tobacco: No; Tobacco Cessation Education Requested by Patient: No Hx Alcohol Use: No Hx Substance Use: Yes Substance Use Type Other:: carlos 02-03-25 Preferred Language: Swedish Communication Ability: Effective Gin Inspector Required: No Beliefs That Will Affect Care: None Current Living Situation: Alone Other Information That Helps Us Care for You: No Feels Safe at Home: Yes Safety Concerns: Feels Safe At This Time Assistive Devices: Glasses Assistive Devices Comment: partial bottom plate in on admit Review of Systems 2 Review of Systems: All systems reviewed & are unremarkable except as noted in HPI & below Physical Exam 2 Physical Exam: Constitutional: No acute distress, frail-appearing HEENT: EOMI, PERRLA Respiratory system: Decreased air entry bilaterally, no wheeze, no rhonchi, mild crackles bilateral lower lobe CVS: S1-S2 positive, no murmurs or gallops Abdomen: Soft, nontender, nondistended, positive bowel sounds x4 Extremities: +2 pulses bilaterally radialis/ dorsalis pedis, no cyanosis, no edema Neuro: Awake alert oriented x3 Psych: Normal mood and affect G/U: No [place] Skin: no rashes, warm and dry Lymphatic: no cervical or axillary lymphadenopathy Results & Data Results & Data Vital Signs (Past 12 Hours) Vital Signs Temp Pulse Pulse Resp BP BP Pulse Ox 02/04/25 15:30 02/04/25 15:00 130/75 02/04/25 14:36 86 23 98 02/04/25 14:27 86 02/04/25 14:03 85 19 98 02/04/25 13:33 83 19 02/04/25 13:00 84 16 179/84 H 99 02/04/25 12:33 83 26 H 97 02/04/25 12:06 83 19 97 02/04/25 11:00 80 27 H 132/77 94 02/04/25 10:45 80 15 120/71 90 02/04/25 10:45 120/71 02/04/25 10:33 02/04/25 10:31 81 02/04/25 10:30 81 17 113/69 02/04/25 10:07 36.5 C 80 16 88/63 L 90 O2 Del Method 02/04/25 15:30 Room Air 02/04/25 15:00 02/04/25 14:36 02/04/25 14:27 02/04/25 14:03 02/04/25 13:33 02/04/25 13:00 Room Air 02/04/25 12:33 02/04/25 12:06 02/04/25 11:00 Room Air 02/04/25 10:45 Room Air 02/04/25 10:45 02/04/25 10:33 Room Air 02/04/25 10:31 02/04/25 10:30 02/04/25 10:07 Laboratory Results 02/04/25 10:35 02/04/25 10:35 PG Care Time/CCT Total # of Minutes Spent Total Time Spent with Patient: Total time spent is greater than 50% in coordination of care (as documented) at patient's floor/unit and/or counseling patient: [place] [address] INT INP/OBS CARE 3/75MIN Patient Type New Diagnoses Multifocal pneumonia J18.[address] R93.89 COPD with emphysema J43.9 Pulmonary cavitary lesion J98.4 Hemoptysis R04.2
[2025-02-04] MEDS: ALBUT/IPRATROP 3MG/0.5MG NEB 3 ML VIAL NEB SCH (16:40)
[2025-02-04] MEDS: SODIUM CHLORIDE 0.9% 1,000 ML IV SCH (16:46)
[2025-02-04] MEDS: VANCOMYCIN HCL 1,250 MG in SODIUM CHLORIDE 0.9% 250 ML IV ONE (16:46)
[2025-02-04] MEDS: INSULIN ASPART PER UNIT CHARGE SC SCH (16:47)
[2025-02-04] MEDS: MAGNESIUM SULFATE / D5W 1 GM/100 ML BAG IV SCH (18:05)
[2025-02-04] MEDS: BUDESONIDE 0.5 MG/2 ML VIAL (PULMICORT) NEB SCH (20:07)
[2025-02-04] MEDS: FORMOTEROL 20 MCG/2 ML VIAL NEB SCH (20:07)
[2025-02-04] MEDS: PIPERACILLIN/TAZOBACTAM 4.5 GM/100 ML BAG IV SCH (20:37)
[2025-02-04] MEDS: LIDOCAINE 5% 1 PATCH TD SCH (20:37)
[2025-02-04] MEDS: DOXYCYCLINE HYCLATE 100 MG CAP PO SCH (20:38)
[2025-02-04] MEDS: GABAPENTIN 300 MG CAP PO SCH (20:38)
[2025-02-04] MEDS: REMOVE LIDODERM PATCH SCH (23:59)
[2025-02-05] MEDS: VANCOMYCIN 750 MG in SODIUM CHLORIDE 0.9% 250 ML IV SCH (00:56)
[2025-02-05 06:44] LABS: Anisocytosis Present; Hematocrit (blood only) 21.8 % (37.0-47.0); Hemoglobin 7.0 g/dl (12.0-16.0); Hypochromasia Present; Immature Granulocytes # (auto) 0.05 K/uL (0.01-0.20); Immature Granulocytes % (auto) 0.5 %; Mean Corpuscular Hemoglobin 24.1 pg (25.0-34.0); Mean Corpuscular Volume 75.2 fL (80.0-100.0); Microcytosis Present; Platelet Count 704 K/uL (130-400); Polychromasia 1+; RDW Standard Deviation 56.2 fL (36.4-46.3); Red Blood Count 2.90 M/uL (4.20-5.40); White Blood Count 9.58 K/ul (4.8-10.8)
[2025-02-05 07:07] LABS: Hypochromasia Present; Microcytosis Present
[2025-02-05 07:11] LABS: Anion Gap 8.0 (3-11); Blood Urea Nitrogen 7.0 mg/dl (6-23); Calcium 7.5 mg/dl (8.6-10.3); Carbon Dioxide 24.0 mmol/L (21-32); Chloride 102.0 mmol/L (98-107); Creatinine Clr Calc Pharmacy 80.3 ml/min; Glucose 110.0 mg/dl (70-99(Fasting)); Immunoglobulin A 119.8 mg/dl (70-400); Immunoglobulin G 575.3 mg/dl (635-1741); Immunoglobulin M 332.5 mg/dl (45-281); Iron 23.0 mcg/dl (35-150); Potassium 3.8 mmol/L (3.5-5.1); Sodium 134.0 mmol/L (136-145); Transferrin 225.0 mg/dl (200-360)
[2025-02-05 07:16] LABS: Ferritin 127.8 ng/ml (8-388)
[2025-02-05 07:17] LABS: Hemoglobin A1C 7.7 % (4.5-5.6)
--- NOTE | 2025-02-05 07:36 | Pulmonology Progress Note ---
Date of Service February 05, 2025 Assessment & Plan (1) Multifocal pneumonia: (2) Abnormal chest CT: (3) COPD with emphysema: (4) Pulmonary cavitary lesion: (5) Hemoptysis: Plan CT chest 02/04/2025 personally reviewed: Right apical 6 cm x 3.8 cm thick cavitary lesion Another cavitary lesion with mass appreciated in the right lower lobe 5 mm left upper lobe pulmonary nodule, unchanged Minimal right hilar lymphadenopathy -- Multiple cavitary lesions with masslike consolidation in the right lower lobe With unintentional weight loss of approximately 20 pounds Failed multiple antibiotics as an outpatient Patient had right upper lobe 2 cavitary lesions back in November 2024 Part of the lesion in the right upper lobe seems to be decreasing in size on the latest CAT scan of the chest The right lower lobe cavitary lesion with consolidative process is new Goal QuantiFERON negative 10/16/2024 Procalcitonin 0.3 --COPD > [id number] active smoker On Wixela 250 at home Plan: The probability of tuberculosis is low given the negative gold QuantiFERON. Possibility of indolent infection which is not responding to antibiotics versus malignancy in somebody who is a heavy smoker is high Continue with antibiotics with anaerobic coverage as well as atypical coverage. For bronchoscopy with EBUS in the OR today Patient's hemoglobin is 7, it is likely chronic iron deficiency. Would recommend 1 unit PRBC to be given to the patient Case was discussed with primary team Risk and benefit of the procedure explained to the patient in depth. Patient understands and wants to go ahead with the procedures Consent signed, witnessed and put in the chart I spent more than 50 minutes looking in the chart, images, discussing the plan of care with the patient, RN as well as primary team Please note the above document was generated using voice recognition software. It may contain grammatical, syntax or spelling errors.Any formal questions or concerns about the content, text or information contained within the body of this dictation should be directly addressed to the provider for clarification. Admission and Anticipated Discharge Date Admission Date: February 04, 2025 Subjective Patient seen and examined at bedside. No acute distress, no adverse events overnight She was upset that they have been drawing a lot of blood And she was adamant that she wants to go home after the procedure later today. Has been coughing up some phlegm. Denies any nausea or vomiting Is n.p.o. Was saturating 92-93% on room air Review of Systems 2 Review of Systems: All systems reviewed & are unremarkable except as noted in Subjective Physical Exam 2 Physical Exam: Constitutional: No acute distress, frail-appearing HEENT: EOMI, PERRLA Respiratory system: Decreased air entry bilaterally, more decreased on the right lower side, no wheeze, no rhonchi, mild crackles bilateral lower lobe CVS: S1-S2 positive, no murmurs or gallops Abdomen: Soft, nontender, nondistended, positive bowel sounds x4 Extremities: +2 pulses bilaterally radialis/ dorsalis pedis, no cyanosis, no edema Neuro: Awake alert oriented x3 Psych: Normal mood and affect G/U: No Amaodr Skin: no rashes, warm and dry Lymphatic: no cervical or axillary lymphadenopathy Results & Data Results & Data Vital Signs (Past 12 Hours) Vital Signs Temp Pulse Pulse Resp BP Pulse Ox O2 Del Method 02/05/25 07:11 79 18 95 Room Air 02/05/25 05:16 36.5 C 81 14 175/85 H 95 Nasal Cannula 02/05/25 00:36 36.6 C 84 16 173/73 H 95 Room Air 02/04/25 22:03 85 02/04/25 21:00 Room Air 02/04/25 20:08 86 18 93 Room Air Laboratory Results 02/05/25 05:39 02/05/25 05:39 PG Care Time/CCT Total # of Minutes Spent Total Time Spent with Patient: Total time spent is greater than 50% in coordination of care (as documented) at patient's floor/unit and/or counseling patient: Coding Level of Care Code 08634 SUB INP/OBS CARE 3/50MIN Diagnoses Multifocal pneumonia J18.[address] R93.89 COPD with emphysema J43.9 Pulmonary cavitary lesion J98.4 Hemoptysis R04.2
[2025-02-05] MEDS ORDERED: SODIUM CHLORIDE 0.9% 100 ML IV PRN ×2 (07:39→07:53)
--- NOTE | 2025-02-05 08:20 | XCELERA ---
[id number]
--- NOTE | 2025-02-05 09:00 | Hospitalist Progress Note ---
Date of Service February 05, 2025 Assessment & Plan (1) Multifocal pneumonia: (2) Abnormal chest CT: (3) COPD with emphysema: (4) Microcytic anemia: (5) Hyponatremia: (6) Hypertension: (7) Diabetes type 2: Plan 69 year old female with PMH significant for DMII, dyslipidemia, COPD, hypertension, and tobacco use who presented to the ED on 02/04/2025 with dizziness and had a fall and is admitted for multifocal pneumonia and abnormal CT scan findings. Multifocal pneumonia Abnormal CT scan History of hemoptysis, weight loss, shortness of breath since September 2024 with multiple failed courses of antibiotics/steroids Following with Pulmonology outpatient for abnormal CT scan in November 2024 and had plan to repeat imaging Labs revealed leukocytosis and elevated lactate CXR revealed dense right mid and lower lung consolidation favoring pneumonia CTA chest revealed extensive masslike consolidation with cavitation in right lung; large right lower lobe component new from 11/28/2024 favoring necrotizing/cavitary pneumonia with underlying neoplastic process impossible to exclude; unchanged 5mm left upper lobe pulmonary nodule Blood cultures prelim no growth Initially on Zosyn, vancomycin, and doxycycline ID consulted and recommended continuing only Zosyn for now Pulmonology consulted and scheduled patient for bronch today COPD On Wixela and Spiriva at home Continue duonebs, formoterol and budesonide nebs Microcytic anemia Following with Hematology outpatient for new onset anemia Hgb 7.4 on admission downtrended to 7.0 today Received 1 unit PRBC due to bronch scheduled today Iron level 23 Vitamin B12 normal Blood consent was obtained from the patient as delegated by Dr. Bal. Risks and benefits were explained. All questions were answered with the attending physician present. Hyponatremia Na 130 on admission; serum osmolality 272, urine osmolality 416, urine sodium 48 favoring hypovolemic hyponatremia Improved to 134 with fluids Monitor BMP Hypertension Home lisinopril on hold for hypotension on admission Monitor BPs Diabetes A1C 7.7 Home metformin on hold BSG ACHS and SSI while inpatient DVT Prophylaxis: SCDs Code Status: DNR/DNI PCP: Angeline Pedraza Disposition: awaiting bronch studies/cultures for final ID recs Patient seen in collaboration with Dr Bal. Please see addendum. I spent a total of 50 minutes coordinating, documenting and providing care for this patient excluding time spent in the performance of separately billed services or time spent by another provider/QHP. Admission and Anticipated Discharge Date Admission Date: February 04, 2025 Supervising Physician Co-Signing Physician Notes Patient seen and examined Reports cough, SOB and weight loss since October Denied chest pain. Exam notable for thin woman in no distress, diminished breath sounds with some crackles Reviewed findings from CT showing mass like consolidation and cavitary lesions We discussed need for bronch. She agreed to that. We also reviewed her Hb which is 7 and Pulm wants transfusion prior to procedure She was initially reluctant about transfusion but later agreed after all her questions regarding transfusion was answered. Continue antibiotics Monitor Hb Will follow up Bronch findings Other plans as detailed by Donna GENAO Subjective Patient seen sitting up in bed Is upset about multiple IV sticks Denies chest pain, SOB, abdominal pain, N/V Review of Systems Review of Systems: All systems reviewed & are unremarkable except as noted in Subjective Physical Exam Physical Exam: General/Psych: frail, sitting up in bed, NAD, conversing easily Head: normocephalic, atraumatic Eyes: normal inspection, PERRL, conjunctivae pink ENT: external ear and nose normal, oropharynx normal Neck: normal visual inspection, trachea midline Respiratory: normal respiratory effort, lungs diminished with crackles appreciated, no accessory muscle use Cardiovascular: regular rate and rhythm, no murmur/rub/gallop, no JVD Extremities: no cyanosis or clubbing, normal peripheral pulses, no BLE edema Abdomen/GI: normal bowel sounds, soft, nontender Neurologic/MSK: A+Ox3, motor strength 5/5, moves all extremities Skin: no rashes, normal color, warm and dry Results & Data Results & Data Vital Signs (Past 12 Hours) Vital Signs Temp Pulse Pulse Resp BP Pulse Ox O2 Del Method 02/05/25 08:07 36.6 C 83 16 187/82 H 90 Room Air 02/05/25 07:11 79 18 95 Room Air 02/05/25 05:16 36.5 C 81 14 175/85 H 95 Nasal Cannula 02/05/25 00:36 36.6 C 84 16 173/73 H 95 Room Air 02/04/25 22:03 85 02/04/25 21:00 Room Air Laboratory Results Short CBC 02/04/25 02/05/25 Range/Units 10:35 05:39 WBC 22.46 H 9.58 D (4.8-10.8) K/ul Hgb 7.4 L 7.0 L (12.0-16.0) g/dl Hct 23.7 L 21.8 L (37.0-47.0) % Plt Count 638 H 704 H (130-400) K/uL BMP 02/04/25 02/05/25 10:35 05:39 Sodium 130 L 134 L Potassium 4.6 3.8 Chloride 95 L 102 Carbon Dioxide 25 24 BUN 13 7 Creatinine 0.56 L 0.47 L Glucose 155 H 110 H Calcium 8.4 L 7.5 L Liver Function 02/04/25 Range/Units 10:35 Total Bilirubin 0.4 (0.2-1.0) mg/dl Direct Bilirubin 0.1 (0-0.2) mg/dl AST 9 L (13-39) U/L ALT 12 (7-52) U/L Alkaline Phosphatase 65 (34-104) U/L Albumin 2.9 L (3.4-5.0) gm/dl Urine 02/04/25 Range/Units 13:26 Urine Color Yellow Urine Appearance Clear (Clear) Urine pH 7.0 (4.5-7.5) Ur Specific [place] 1.013 (1.000-1.030) Urine Protein Negative (Negative) Urine Glucose (UA) Negative (Negative) I have independently reviewed and interpreted patient's labs including CBC, BMP, A1C, iron studies, B12 Medications Administered Current Inpatient Medications Acetaminophen (Acetaminophen 325 Mg Tab) 650 mg PO Q4H PRN PRN Reason: Pain or Fever Stop: 03/06/25 14:23 Albuterol (Albut/Ipratrop 3mg/0.5mg Neb 3 Ml Vial) 3 ml NEB QIDR MONSE; Protocol Stop: 03/06/25 14:59 Last Admin: 02/05/25 07:10 Dose: Not Given Budesonide (Budesonide 0.5 Mg/2 Ml Vial (Pulmicort)) 0.5 mg NEB BIDR MONSE Stop: 03/06/25 18:59 Last Admin: 02/05/25 07:11 Dose: 0.5 mg Dextrose (Dextrose 50% 50 Ml Syringe) 25 - 50 ml IV UD PRN; Protocol PRN Reason: Hypoglycemia Protocol Stop: 03/06/25 15:58 Doxycycline Hyclate (Doxycycline Hyclate 100 Mg Cap) 100 mg PO BID [facility] Stop: 02/09/25 20:59 Last Admin: 02/04/25 20:38 Dose: 100 mg Formoterol Fumarate (Formoterol 20 Mcg/2 Ml Vial) 20 mcg NEB BIDR [facility] Stop: 03/06/25 18:59 Last Admin: 02/05/25 07:11 Dose: 20 mcg Gabapentin (Gabapentin 300 Mg Cap) 300 mg PO BID MONSE Stop: 03/06/25 20:59 Last Admin: 02/04/25 20:38 Dose: 300 mg Glucagon (Glucagon For Inj 1 Mg Vial) 1 mg SQ UD PRN; Protocol PRN Reason: Hypoglycemia Protocol Stop: 03/06/25 15:58 Glucose (Glucose 40% Gel 15 Gm Tube) 15 - 30 gm PO UD PRN; Protocol PRN Reason: Hypoglycemia Protocol Stop: 03/06/25 15:58 Glucose (Glucose 10 Tab/Tube) 4 - 8 tab PO UD PRN; Protocol PRN Reason: Hypoglycemia Protocol Stop: 03/06/25 15:58 Piperacillin Sod/Tazobactam Sod (Zosyn) 4.5 gm in 100 mls @ 25 mls/hr IV Q8H [facility]; Protocol Stop: 02/11/25 19:59 Last Admin: 02/05/25 04:42 Dose: 25 mls/hr Sodium Chloride (Nss) 1,000 mls @ 80 mls/hr IV .[id number] [facility] Stop: 02/07/25 15:14 Last Admin: 02/05/25 04:42 Dose: 80 mls/hr Vancomycin HCl 750 mg/ Sodium (Chloride) 265 mls @ 200 mls/hr IV Q12H [facility] Stop: 02/07/25 00:00 Last Infusion: 02/05/25 04:08 Dose: Infused Sodium Chloride (Nss) 100 mls @ 15 mls/hr IV .Q6H40M PRN PRN Reason: For Transfusion Duration Stop: 02/05/25 15:53 Insulin Aspart (Insulin Aspart Per Unit Charge) 0 units SC ACHS [facility] Stop: 03/06/25 16:29 Last Admin: 02/05/25 07:13 Dose: Not Given Lidocaine (Lidocaine 5% 1 Patch) 1 patch TD DAILY [facility] Stop: 03/06/25 19:44 Last Admin: 02/04/25 20:37 Dose: 1 patch Magnesium Hydroxide (Magnesium Hydroxide Susp 30 Ml Udc) 30 ml PO Q12H PRN PRN Reason: Constipation Stop: 03/06/25 14:23 Miscellaneous (Carbohydrates For Hypoglycemia ) 15 - 30 gm PO UD PRN PRN Reason: Hypoglycemia Protocol Stop: 03/06/25 15:58 Miscellaneous (Remove Lidoderm Patch) 1 each N/A DAILY@2100 MONSE Stop: 03/06/25 23:58 Last Admin: 02/04/25 23:59 Dose: 1 each Miscellaneous Information (Vancomycin Consult Active) 1 each N/A UD PRN PRN Reason: Consult Stop: 03/06/25 14:23 Miscellaneous Information (Pharmacy Glycemic Mgmt Consult) 1 each N/A UD PRN PRN Reason: Consult Stop: 03/06/25 15:58 Polyethylene Glycol (Polyethylene (Miralax) 17 Gm Pack) 17 gm PO DAILY PRN PRN Reason: Constipation Stop: 03/06/25 14:23
[2025-02-05] MEDS ORDERED: NALOXONE HCL 0.4 MG/1 ML VIAL/CARP IV PRN (11:27)
[2025-02-05] MEDS ORDERED: ONDANSETRON INJ 2 MG/ML 2 ML VIAL IV PRN (11:27)
[2025-02-05] MEDS ORDERED: PROMETHAZINE HCL 6.25 MG in SODIUM CHLORIDE 0.9% 50 ML IV PRN (11:27)
[2025-02-05] MEDS ORDERED: HYDROmorphone INJ 2 MG/ML SYR/VIAL IV PRN (11:27)
[2025-02-05] MEDS ORDERED: ATROPINE SULFATE 0.1 MG/ML 10ML SYR IV PRN (11:27)
--- NOTE | 2025-02-05 11:27 | Anesthesiology Consultation ---
Date of Service February 05, 2025 Assessment & Plan Chart Review Chart Review: Acceptable Risk for Surgery Consults Requested none History Surgery Operation Date: 02/05/25 07:10 Proposed Procedures p Bronchoscopy with Bronchoalveolar Lavage and Transbronchial Biopsy - [facility] Height/Weight Height: 5 ft 4 in Weight: 46 kg Allergies Allergy/AdvReac Type Severity Reaction Status Date / Time Sulfa (Sulfonamide Allergy Mild doesnt Unverified 02/04/25 13:20 Antibiotics) remember Medications Home Medications Medication Instructions Recorded Confirmed Last Taken albuterol sulfate 0.63 mg/3 mL 0.63 mg inhalation UD PRN sob 02/04/25 02/04/25 Unknown solution for nebulization albuterol sulfate 90 mcg/actuation 1 puff inhalation Q6H PRN sob 02/04/25 02/04/25 Unknown aerosol inhaler fluticasone 250 mcg-salmeterol 50 1 inh inhalation BID 02/04/25 02/04/25 02/04/25 mcg/dose blistr powdr for inhalation gabapentin 300 mg capsule 300 mg PO BID 02/04/25 02/04/25 02/04/25 lisinopril 40 mg tablet 40 mg PO DAILY 02/04/25 02/04/25 02/04/25 meloxicam 7.5 mg tablet 7.5 mg PO BID 02/04/25 02/04/25 02/04/25 metformin 1,000 mg tablet 1,000 mg PO DAILY 02/04/25 02/04/25 02/04/25 tizanidine 4 mg tablet 4 mg PO Q6H PRN Muscle Spasm 02/04/25 02/04/25 Unknown Active Medications Generic Name Dose Route Start Last Admin Trade Name Freq PRN Reason Stop Dose Admin Albuterol 3 ml 02/04/25 15:00 02/05/25 10:40 Albut/Ipratrop 3mg/0.5mg Neb 3 Ml Vial NEB 03/06/25 14:59 3 ml QIDR MONSE Administration Protocol Budesonide 0.5 mg 02/04/25 19:00 02/05/25 07:11 Budesonide 0.5 Mg/2 Ml Vial (Pulmicort) NEB 03/06/25 18:59 0.5 mg BIDR MONSE Administration Doxycycline Hyclate 100 mg 02/04/25 21:00 02/05/25 10:30 Doxycycline Hyclate 100 Mg Cap PO 02/09/25 20:59 100 mg BID MONSE Administration Formoterol Fumarate 20 mcg 02/04/25 19:00 02/05/25 07:11 Formoterol 20 Mcg/2 Ml Vial NEB 03/06/25 18:59 20 mcg BIDR MONSE Administration Gabapentin 300 mg 02/04/25 21:00 02/05/25 10:30 Gabapentin 300 Mg Cap PO 03/06/25 20:59 300 mg BID MONSE Administration Piperacillin Sod/Tazobactam Sod 4.5 gm in 100 mls @ 25 mls/hr 02/04/25 20:00 02/05/25 09:13 Zosyn IV 02/11/25 19:59 Infused Q8H MONSE Infusion Protocol Sodium Chloride 1,000 mls @ 80 mls/hr 02/04/25 15:15 02/05/25 04:42 Nss IV 02/07/25 15:14 80 mls/hr .[id number] MONSE Administration Vancomycin HCl 750 mg/ Sodium 265 mls @ 200 mls/hr 02/05/25 00:00 02/05/25 04:08 Chloride IV 02/07/25 00:00 Infused Q12H MONSE Infusion Insulin Aspart 0 units 02/04/25 16:30 02/05/25 07:13 Insulin Aspart Per Unit Charge SC 03/06/25 16:29 Not Given ACHS MONSE Lidocaine 1 patch 02/04/25 19:45 02/05/25 10:30 Lidocaine 5% 1 Patch TD 03/06/25 19:44 1 patch DAILY MONSE Administration Miscellaneous 1 each 02/04/25 23:59 02/04/25 23:59 Remove Lidoderm Patch N/A 03/06/25 23:58 1 each DAILY@2100 MONSE Administration Past Medical History Medical History Pneumonia Social History Smoking Status: Current every day smoker Smoking cigarettes per day: 20-30 Do You Dip or Chew Tobacco: No Hx Alcohol Use: No Alcohol type: beer alcohol intake frequency: a few times a month Hx Substance Use: Yes Substance Use Type Other:: gummie 02-03-25 Physical Exam Vital Signs Last Vital Signs Temp 36.6 C 02/05/25 10:55 Pulse 84 02/05/25 10:55 Resp 20 02/05/25 10:55 BP 186/81 H 02/05/25 10:55 Pulse Ox 93 02/05/25 10:55 O2 Del Method Room Air 02/05/25 10:53 O2 Flow Rate 0 02/05/25 10:55 Testing Laboratory Results 02/05/25 05:39 02/05/25 05:39 PT 12.3 Seconds (9.0-12.0) H 02/04/25 10:35 INR 1.1 (0.9-1.1) 02/04/25 10:35 APTT 21 Seconds (21-31) 02/04/25 10:35 Hemoglobin A1c 7.7 % (4.5-5.6) H 02/05/25 05:39 Urine Color Yellow 02/04/25 13:26 Urine Appearance Clear (Clear) 02/04/25 13:26 Urine pH 7.0 (4.5-7.5) 02/04/25 13:26 Ur Specific [place] 1.013 (1.000-1.030) 02/04/25 13:26 Urine Protein Negative (Negative) 02/04/25 13:26 Urine Glucose (UA) Negative (Negative) 02/04/25 13:26 Urine Ketones Negative (Negative) 02/04/25 13:26 Urine Nitrite Negative (Negative) 02/04/25 13:26 Ur Leukocyte Esterase Negative (Negative) 02/04/25 13:26 Blood Type A Negative 02/05/25 07:53 Antibody Screen NEGATIVE 02/05/25 07:53
--- NOTE | 2025-02-05 11:44 | Pharmacy Report ---
Pharmacy PK ABX Note - Date of Service February 05, 2025 - Assessment and Plan Assessment 69 year old F receiving vancomycin, piperacillin/tazobactam, and doxycycline for treatment of cavitary pneumonia. Pertinent microbiologic data includes: Negative MRSA Nasal Swab, blood cultures in process. Day #2 of antimicrobial therapy. Plan Vancomycin * Loading dose: 1250 mg IV x 1 * Maintenance dose: 750 mg IV every 12 hours * Regimen is predicted to achieve target AUC/MIHAI of 400-600 mg/L.hr * Random level ordered for: 02/06/2025 @ 1100 Pharmacy will continue to follow and will adjust dose/frequency as necessary. Thank you. Pharmacy has transitioned to AUC monitoring for vancomycin. AUC/MIHAI is the preferred PK/PD target and is associated with decreased risk of nephrotoxicity compared to traditional trough targets.
[2025-02-05] MEDS ORDERED: DEXAMETHASONE SOD INJ 4 MG/ML VIAL ONE (12:02)
[2025-02-05] MEDS ORDERED: LIDOCAINE 2% 2 ML VIAL/AMP(20MG/ML) INFIL ONE (12:02)
[2025-02-05] MEDS ORDERED: PROPOFOL IV EMULSION 10 MG/ML 20 ML VIAL IV ONE ×2 (12:02→14:03)
[2025-02-05] MEDS ORDERED: ROCURONIUM BROMIDE 10 MG/ML 5 ML VIAL IV ONE (12:02)
[2025-02-05] MEDS ORDERED: ONDANSETRON INJ 2 MG/ML 2 ML VIAL ONE (12:02)
--- NOTE | 2025-02-05 12:17 | Pharmacy Report ---
Pharmacy Glycemic Short Note 2 - Date of Service February 05, 2025 - Glycemic Short BSG Results (Last 24 hours): 02/04/25 02/04/25 02/05/25 16:31 20:36 05:39 Glucose 110 H POC Glucose 139 H 171 H OUTPATIENT ANTIDIABETIC REGIMEN: * Metformin 1g daily * A1c: 7.7% (02/05/25) ASSESSMENT: * 69 YO F with T2DM admitted 02/04/25 for dizziness and a fall, found to be hypotensive and hypoxic on presentation * CT scan from 11/2024 shows consolidation with cavitation (vanc/zosyn/doxy) * Glucose 155 on arrival, stable; has not required correctional so far * NPO today for bronch PLAN FOR INPATIENT GLYCEMIC CONTROL: * Hold outpatient oral diabetes medications * Basal insulin * None indicated for now * Bolus insulin * NovoLog per scale ACHS or Q6hrs while NPO * Goal Range: Low 140 mg/dL - High 180 mg/dL * Correction Factor: 45 mg/dL/unit * Nutritional / Prandial insulin per carb ratio of 1 unit per 20 grams CHO consumed
[2025-02-05 12:35] LABS: Quantiferon TB1 0.052 IU/mL; Quantiferon TB2 0.030 IU/mL
[2025-02-05] MEDS ORDERED: SUGAMMADEX SODIUM 200 MG/2 ML VIAL IV ONE (15:05)
--- NOTE | 2025-02-05 15:12 | Procedure Note ---
Procedure Note: Bronchoscopy Procedure PREOPERATIVE DIAGNOSIS: Multiple pulmonary cavitary lesions with right lower lobe mass POSTOPERATIVE DIAGNOSIS: Multiple pulmonary cavitary lesions with purulent phlegm PROCEDURE PERFORMED: Flexible fiberoptic bronchoscopy with bronchoalveolar lavage, transbronchial biopsies of right upper as well as right lower lobe and EBUS during clearing of the airways of the right main bronchus COMPLICATIONS: None. INDICATION: Rule out indolent infection and malignancy PROCEDURE: After obtaining an informed consent, the patient was brought to the OR. The patient had appropriate oxygen, blood pressure, heart rate, and respiratory rate monitoring applied and monitored continuously throughout the pr ocedure. Sedation was managed by anesthesia, please refer to the notes Bronchoscope was advanced through ETT As soon as we reached the trachea there was copious amount of yellowish thick phlegm appreciated coming from left upper and left lower There was mucous plugging appreciated of the left lower lobe. The area was therapeutically suctioned clear. I had to remove the scope frequently to clear the phlegm. Bronchial wash was also obtained from the right main and sent for culture After suctioning the phlegm the trachea appeared normal.The bronchoscope was then advanced through the aracely, which was sharp. The secondary aracely on the right side was widened There was generalized mucosal atrophy appreciated on the right side of the lung. The scope was then advanced into the right main stem and each segment, subsegement in the right upper lobe, right middle lobe and right lower lobe were visualized. There was moderate to severe amount of copious yellow thick secretion which was suctioned out. There were no other findings including evidence of mass, anatomic distortions, or hemorrhage. The bronchoscope was subsequently withdrawn and advanced into the left mainstem. Again, each segment and subsegment was well visualized. No specific masses or other lesions were identified throughout the tracheobronchial tree on the left. There was minimal amount of clear secretion which was suctioned out The bronchoscope was then wedged in the right upper lobe and bronchoalveolar lavage samples were obtained. 60 ml of saline was instilled and 30 ml of fluid was aspirated back.The bronchoscope was withdrawn and the area was suctioned clear. The bronchoscope was then wedged in the right lower lobe superior segment and lateral segment and bronchoalveolar lavage samples were obtained. 90 ml of saline was instilled and 45 ml of fluid was aspirated back.The bronchoscope was withdrawn and the area was suctioned clear. The bronchoscope was then re-advanced into the right lower lobe superior segment as well as lateral segment and multiple transbronchial biopsies were taken. Minimal hemorrhage was identified and suctioned clear without difficulty. The bronchoscope was then advanced into the right upper lobe apical segment and only 1 forceps biopsy was taken which led to oozing of blood. Approximately 130 mL of cold saline was utilized to achieve adequate hemostasis. Flexible bronchoscope was withdrawn and EBUS was introduced Station 7, 4R and 10R were visualized Station 7: 3 passes with multiple sweeps Station 4R: 3 passes with multiple sweeps Station 10R: 3 passes with multiple sweeps EBUS was withdrawn and flexible bronchoscope was reintroduced. Minimal bleeding was appreciated which was suctioned clear. The bronchoscope was then withdrawn to the mainstem. The area was suctioned clear. The bronchoscope was then withdrawn. The patient tolerated the procedure well without evidence of desaturation or complications. Bronchoalveolar lavage samples were sent for cell count, Gram stain and bacterial culture, AFB culture and smear, fungal culture and smear, histoplasmosis, Coccidioides, blastomycosis and cytology. Transbronchial biopsies were sent for tissue culture (bacteria, AFB and fungal) and pathology. Estimated blood loss: 8-10 mL Recommendations: Follow-up micro, cytology and pathology Follow-up chest x-ray Please note the above document was generated using voice recognition software. It may contain grammatical, syntax or spelling errors.Any formal questions or concerns about the content, text or information contained within the body of this dictation should be directly addressed to the provider for clarification. [facility] Procedure Codes (Charges) Pulmonary/Thoracic Procedure 1: Pulmonary and Thoracic: 18862 Dx bronchoscopy/BAL Procedure 2: Pulmonary and Thoracic: 66282 Dx bronchoscopy/wash Procedure 3: Pulmonary and Thoracic: 13359 Bronchoscopy w/ transbronchial lung bx Procedure 4: Pulmonary and Thoracic: 40400 Bronchoscopy w/ transbronchial lung bx add'l lobe Procedure 5: Pulmonary and Thoracic: 49249 Bronchoscopy, w/EBUS, 3+ mediastinal Procedure 6: Pulmonary and Thoracic: 70659 Bronchoscopy, clear airways
--- NOTE | 2025-02-05 15:48 | XRay Report ---
XR chest 1V portable HISTORY: 69 years-old Female Post Bronchoscopy COMPARISON: Chest radiograph and CTA chest 02/04/2025 TECHNIQUE: AP view of the chest FINDINGS: Cardiomediastinal and hilar silhouettes are unchanged. Emphysema. The left lung is generally clear. N o definite pneumothorax. Right pleural effusion redemonstrated. There is progressive peripheral conso lidation throughout the right lung, since yesterday's study this is most pronounced within the right lung apex. Right apical cavity persists. Bones appear grossly intact. IMPRESSION: 1. Persistent multifocal peripheral predominant airspace opacities throughout the right lung favoring multifocal pneumonia. Since yesterday's study this has most progressed within the right upper lobe. 2. Emphysema with right apical cavity redemonstrated. 3. No definite pneumothorax identified. ACT 112: Negative or not required by law. The above report was generated using voice recognition software. It may contain grammatical, syntax o r spelling errors. Electronically signed by: Ger Salinas M.D. 02/05/2025 3:47 PM
--- NOTE | 2025-02-05 16:01 | Anesthesiology Progress Note ---
Date of Service February 05, 2025 Anesthesia Post Procedure Vital Signs Vital Signs: Temp Pulse Pulse Resp BP BP BP 02/05/25 15:45 83 21 131/62 02/05/25 15:35 94 H 16 140/63 02/05/25 15:27 36.0 C L 101 H 16 142/103 H 02/05/25 12:48 36.8 C 77 18 171/84 H 02/05/25 12:10 36.7 C 90 20 185/81 H 02/05/25 12:08 36.7 C 82 20 185/81 H 02/05/25 11:25 36.7 C 80 20 182/90 H 02/05/25 10:55 36.6 C 84 20 186/81 H 02/05/25 10:53 02/05/25 10:40 36.6 C 82 20 176/89 H 02/05/25 10:38 36.6 C 84 20 176/81 H 02/05/25 10:25 36.6 C 80 20 178/84 H 02/05/25 10:18 02/05/25 08:07 36.6 C 83 16 187/82 H 02/05/25 07:11 79 18 02/05/25 06:00 79 02/05/25 05:16 36.5 C 81 14 175/85 H 02/05/25 00:36 36.6 C 84 16 173/73 H 02/04/25 22:03 85 02/04/25 21:00 02/04/25 20:08 86 18 02/04/25 19:17 36.8 C 80 14 149/69 H 02/04/25 16:56 02/04/25 16:38 Pulse Ox Pulse Ox O2 Del Method O2 Del Method O2 Flow Rate O2 Flow Rate 02/05/25 15:45 93 Oxymask 6 02/05/25 15:35 96 Oxymask 10 02/05/25 15:27 95 Oxymask 10 02/05/25 12:48 94 Room Air 02/05/25 12:10 96 0 02/05/25 12:08 95 0 02/05/25 11:25 92 02/05/25 10:55 93 0 02/05/25 10:53 Room Air 0 02/05/25 10:40 94 0 02/05/25 10:38 100 02/05/25 10:25 92 0 02/05/25 10:18 93 Nasal Cannula 0 02/05/25 08:07 90 Room Air 02/05/25 07:11 95 Room Air 02/05/25 06:00 02/05/25 05:16 95 Nasal Cannula 02/05/25 00:36 95 Room Air 02/04/25 22:03 02/04/25 21:00 Room Air 02/04/25 20:08 93 Room Air 02/04/25 19:17 95 Room Air 02/04/25 16:56 Room Air 02/04/25 16:38 95 Room Air Pain Intensity Right Arm: Pain Intensity: 4 Transfer of Care Handoff Completed per policy Notes Mental Status: alert / awake / arousable and participated in evaluation Patient Amnestic to Procedure: Yes Nausea / Vomiting: adequately controlled Pain: adequately controlled Airway Patency, RR, SpO2: stable & adequate BP & HR: stable & adequate Hydration State: stable & adequate Anesthetic Complications: no major complications apparent and Pt Satisfied with anesthetic care
--- NOTE | 2025-02-05 16:15 | Infectious Disease Consult ---
Date of Service February 05, 2025 Telehealth Information I could not see the patient as he was performing bronchoscopy. However, I reviewed the chart and formulated based on existing data, labs and imaging. Assessment & Plan (1) Pneumonia: (2) COPD with emphysema: (3) Pulmonary cavitary lesion: Plan Recurrent pneumonia after multiple courses of antibiotics in a patient who is a smoker and more than [address] years as well as CT findings showing consolidations and cavitations is concerning for malignancy. Therefore, I totally agree with bronchoscopy and BAL with biopsy of the consolidation in the right lower lobe. BAL should be sent for bacterial, AFB, fungal, Legionella and Nocardia cultures. Since the MRSA screen is negative, I would recommend stopping IV vancomycin. I would also recommend stopping doxycycline. Can continue on IV piperacillin tazobactam for now. I will follow up on the BAL studies and cultures and decide on final antibiotic plan. Thank you for consulting Infectious Disease. We will continue to follow. History of Present Illness History of Present Illness Ms. Puente is a 69-year-old woman with past medical history of COPD, HTN, type 2 diabetes, hyperlipidemia who was admitted to [facility] on 02/04 because of lightheadedness and falling at home. She has been having progressive shortness of breath, generalized fatigue as well as cough and decreased appetite since September 2024. She also mentioned having unintentional weight loss. Recently, she has been feeling extremely tired and lightheaded and had a fall at home which prompted her to come to the Emergency Department. She had a CAT scan chest performed in November 2024 which demonstrated large bronchiectatic cavity right upper lobe along with some consolidation with air bronchogram as well as patchy area of consolidation in the right lower lobe. She also has been following up with Pulmonary for that reason who optimized her inhalers and ordered PFTs and follow-up CT scan in the future. She was also seen by Oncology in mid January because of her anemia and unintentional weight loss who diagnosed her with anemia of chronic disease but no further workup was ordered. On this presentation, she was afebrile and the rest of the vitals were within normal limits. She was noticed to be tachypneic but no significant oxygen requirement. Her initial workup was mainly significant for leukocytosis of 22.4 (ANC 19.5). CTA of the chest was performed which showed no PE but there was emphysema with extensive masslike consolidation and cavitation in the right lung extending from the apex to the base of the lung (right lower lobe component is new since November 2024 and suggestive of necrotizing/cavitary pneumonia). ID team was consulted for further recommendations and to help guide antibiotic treatment. Allergies Allergy/AdvReac Type Severity Reaction Status Date / Time Sulfa (Sulfonamide Allergy Mild doesnt Unverified 02/05/25 12:47 Antibiotics) remember Home Medications Medication Instructions Recorded Confirmed Type albuterol sulfate 0.63 mg/3 mL 0.63 mg inhalation UD PRN sob 02/04/25 02/04/25 History solution for nebulization albuterol sulfate 90 mcg/actuation 1 puff inhalation Q6H PRN sob 02/04/25 02/04/25 History aerosol inhaler fluticasone 250 mcg-salmeterol 50 1 inh inhalation BID 02/04/25 02/04/25 History mcg/dose blistr powdr for inhalation gabapentin 300 mg capsule 300 mg PO BID 02/04/25 02/04/25 History lisinopril 40 mg tablet 40 mg PO DAILY 02/04/25 02/04/25 History meloxicam 7.5 mg tablet 7.5 mg PO BID 02/04/25 02/04/25 History metformin 1,000 mg tablet 1,000 mg PO DAILY 02/04/25 02/04/25 History tizanidine 4 mg tablet 4 mg PO Q6H PRN Muscle Spasm 02/04/25 02/04/25 History Patient History Medical History Pneumonia Social History Smoking Status: Current every day smoker Tobacco Type: Cigarettes Cigarettes Per Day: 20-30; Second Hand Exposure: No; Do You Dip or Chew Tobacco: No; Tobacco Cessation Education Requested by Patient: No Hx Alcohol Use: No Hx Substance Use: Yes Substance Use Type Other:: carlos 02-03-25 Preferred Language: Kazakh Communication Ability: Effective 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 Physical Exam Could not be performed. Results & Data Vital Signs (Past 12 Hours) Vital Signs Temp Pulse Pulse Resp BP BP BP 02/05/25 16:05 36.8 C 87 19 116/72 02/05/25 15:55 86 26 H 141/63 H 02/05/25 15:45 83 21 131/62 02/05/25 15:35 94 H 16 140/63 02/05/25 15:27 36.0 C L 101 H 16 142/103 H 02/05/25 12:48 36.8 C 77 18 171/84 H 02/05/25 12:10 36.7 C 90 20 185/81 H 02/05/25 12:08 36.7 C 82 20 185/81 H 02/05/25 11:25 36.7 C 80 20 182/90 H 02/05/25 10:55 36.6 C 84 20 186/81 H 02/05/25 10:53 02/05/25 10:40 36.6 C 82 20 176/89 H 02/05/25 10:38 36.6 C 84 20 176/81 H 02/05/25 10:25 36.6 C 80 20 178/84 H 02/05/25 10:18 02/05/25 08:07 36.6 C 83 16 187/82 H 02/05/25 07:11 79 18 02/05/25 06:00 79 02/05/25 05:16 36.5 C 81 14 175/85 H Pulse Ox Pulse Ox O2 Del Method O2 Del Method O2 Flow Rate O2 Flow Rate 02/05/25 16:05 90 Nasal Cannula 4 02/05/25 15:55 88 L Nasal Cannula 4 02/05/25 15:45 93 Oxymask 6 02/05/25 15:35 96 Oxymask 10 02/05/25 15:27 95 Oxymask 10 02/05/25 12:48 94 Room Air 02/05/25 12:10 96 0 02/05/25 12:08 95 0 02/05/25 11:25 92 02/05/25 10:55 93 0 02/05/25 10:53 Room Air 0 02/05/25 10:40 94 0 02/05/25 10:38 100 02/05/25 10:25 92 0 02/05/25 10:18 93 Nasal Cannula 0 02/05/25 08:07 90 Room Air 02/05/25 07:11 95 Room Air 02/05/25 06:00 02/05/25 05:16 95 Nasal Cannula Laboratory Results Microbiology: 02/04: 2 sets of blood culture negative to date Diagnostic Findings Imaging: CTA chest on 02/04: 1. There is no evidence of pulmonary embolus in the main, lobar, or segmental pulmonary arteries. 2. Emphysema. 3. Extensive masslike consolidation with cavitation is seen in the right lung extending from the apex to the base along the major fissure and in the paramediastinal region as detailed above. A large right lower lobe component is new from 11/28/2024, in the appearance/time course favors a necrotizing/cavitary pneumonia. An underlying neoplastic process would be impossible to exclude. Pulmonology evaluation is advised, and follow-up to resolution is recommended. 4. A separate focus of cavitary consolidation in the right upper lobe seen on 11/28/2024 has decreased in size from previous. 5. No airspace consolidation is seen in the left lung. 6. A 5 mm left upper lobe pulmonary nodule is unchanged. (1) Pneumonia Laterality: right Lung location: unspecified part of lung Pneumonia type: due to unspecified organism Qualified Code(s): J18.9 - Pneumonia, unspecified organism
[2025-02-05] MEDS: DOXYCYCLINE HYCLATE 100 MG CAP PO SCH (21:03)
--- NOTE | 2025-02-06 06:09 | Electrocardiogram Report ---
Test Reason : Blood Pressure : */* mmHG Vent. Rate : 82 BPM Atrial Rate : 82 BPM P-R Int : 142 ms QRS Dur : 76 ms QT Int : 396 ms P-R-T Axes : 82 82 65 degrees QTcB Int : 462 ms Sinus rhythm with Premature atrial complexes Otherwise normal ECG No previous ECGs available Confirmed by Chris New ([id number]) on 02/06/2025 6:08:39 AM Referred By: REFERRED SELF Confirmed By: Chris New
[2025-02-06 07:03] LABS: Hematocrit (blood only) 26.3 % (37.0-47.0); Hemoglobin 8.1 g/dl (12.0-16.0); Mean Corpuscular Hemoglobin 24.0 pg (25.0-34.0); Mean Corpuscular Volume 77.8 fL (80.0-100.0); Platelet Count 620 K/uL (130-400); RDW Standard Deviation 54.8 fL (36.4-46.3); Red Blood Count 3.38 M/uL (4.20-5.40); White Blood Count 15.06 K/ul (4.8-10.8)
[2025-02-06 07:16] LABS: Anion Gap 7.0 (3-11); Blood Urea Nitrogen 11.0 mg/dl (6-23); Calcium 7.9 mg/dl (8.6-10.3); Carbon Dioxide 25.0 mmol/L (21-32); Chloride 100.0 mmol/L (98-107); Creatinine Clr Calc Pharmacy 85.1 ml/min; Glucose 123.0 mg/dl (70-99(Fasting)); Potassium 4.4 mmol/L (3.5-5.1); Sodium 132.0 mmol/L (136-145)
[2025-02-06 07:51] LABS: Fluid Mono/Macrophage 2 %; Lymphocyte Body Fluid Man 4 %; Neutrophil Body Fluid Man 94 %
[2025-02-06 07:53] LABS: Lymphocyte Body Fluid Man 5 %; Neutrophil Body Fluid Man 94 %
[2025-02-06 08:04] VITALS: BP 169/89; TEMP 97.7
--- NOTE | 2025-02-06 08:06 | XRay Report ---
EXAM: XR chest 1V portable CLINICAL HISTORY: F/u. TECHNIQUE: An X-ray image of the chest is obtained in AP portable projection. COMPARISON: 02/04/2025. FINDINGS: Pulmonary Parenchyma: Collapse-consolidation in the periphery of the right mid and lower zones, obscuring the costophrenic recess, likely pleural effusion. Left lung and CP angle clear. A small atelectatic band seen traversing in the right mid zone. Thin lines in the right lung seen likely artefacts. Heart and Mediastinum: Heart size and shape are normal. No mediastinal widening or masses. No hilar or mediastinal lymphadenopathy. Bony Thorax: Bony thorax appears intact without fractures or deformities. Internal fixation in cervical spine. Soft Tissues: Soft tissues overlying the chest wall are unremarkable. IMPRESSION: 1. Collapse-consolidation in the periphery of the right mid and lower zones, obscuring the costophrenic recess, likely pleural effusion. 2. A small atelectatic band seen traversing in the right mid zone. 3. No significant interval changes compared to prior study. Electronically signed by Owen Mcfadden 02-06-2025 08:06 AM
--- NOTE | 2025-02-06 08:10 | Pulmonology Progress Note ---
Date of Service February 06, 2025 Assessment & Plan (1) Multifocal pneumonia: (2) Abnormal chest CT: (3) COPD with emphysema: (4) Pulmonary cavitary lesion: (5) Hemoptysis: Plan CT chest 02/04/2025 personally reviewed: Right apical 6 cm x 3.8 cm thick cavitary lesion Another cavitary lesion with mass appreciated in the right lower lobe 5 mm left upper lobe pulmonary nodule, unchanged Minimal right hilar lymphadenopathy -- Multiple cavitary lesions with masslike consolidation in the right lower lobe With unintentional weight loss of approximately 20 pounds Failed multiple antibiotics as an outpatient Patient had right upper lobe 2 cavitary lesions back in November 2024 Part of the lesion in the right upper lobe seems to be decreasing in size on the latest CAT scan of the chest The right lower lobe cavitary lesion with consolidative process is new Goal QuantiFERON negative 10/16/2024 Procalcitonin 0.3 S/p bronchoscopy with EBUS on 02/06/2025: Cytology is negative for malignancy, it does show acute on chronic inflammation EBUS of 3 station was negative for malignancy --COPD > [id number] active smoker On [address] and Spiriva at home Plan: The bronchoscopy shows acute on chronic inflammation which is more inclining towards infection rather than malignancy Pathology was negative for malignancy. Follow-up AFB, fungal culture as well as PCR Recommend the patient to be discharged on Augmentin for at least 4 weeks. Complete the course of atypical coverage for 7 days. Patient should have a repeat CAT scan of the chest done in 6 weeks. 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 It may contain grammatical, syntax or spelling errors.Any formal questions or concerns about the content, text or information contained within the body of this dictation should be directly addressed to the provider for clarification. Admission and Anticipated Discharge Date Admission Date: February 04, 2025 Subjective Patient seen and examined at bedside. No acute distress, no adverse events overnight She was saturating 88-89% on room air Has been coughing up some blood which is decreasing in intensity and frequency Denies any nausea or vomiting Appetite is fair. Denies any chest pain Review of Systems 2 Review of Systems: All systems reviewed & are unremarkable except as noted in Subjective Physical Exam 2 Physical Exam: Constitutional: No acute distress, frail-appearing HEENT: EOMI, PERRLA Respiratory system: Decreased air entry bilaterally, more decreased on the right lower side, no wheeze, no rhonchi, positive crackles bilateral lower lobe CVS: S1-S2 positive, no murmurs or gallops Abdomen: Soft, nontender, nondistended, positive bowel sounds x4 Extremities: +2 pulses bilaterally radialis/ dorsalis pedis, no cyanosis, no edema Neuro: Awake alert oriented x3 Psych: Normal mood and affect G/U: No [place] Skin: no rashes, warm and dry Lymphatic: no cervical or axillary lymphadenopathy Results & Data Results & Data Vital Signs (Past 12 Hours) Vital Signs Temp Pulse Pulse Resp BP Pulse Ox O2 Del Method 02/06/25 08:00 36.5 C 87 18 169/89 H 98 Nasal Cannula 02/06/25 07:22 79 19 97 Room Air 02/06/25 04:29 36.6 C 81 16 182/87 H 97 Nasal Cannula 02/06/25 04:00 86 02/05/25 22:36 36.7 C 85 21 161/73 H 94 Nasal Cannula O2 Flow Rate FiO2 02/06/25 08:00 2 02/06/25 07:22 21 02/06/25 04:29 02/06/25 04:00 02/05/25 22:36 2 Laboratory Results 02/06/25 06:19 02/06/25 06:19 PG Care Time/CCT Total # of Minutes Spent Total Time Spent with Patient: Total time spent is greater than 50% in coordination of care (as documented) at patient's floor/unit and/or counseling patient: Coding Level of Care Code 26213 SUB INP/OBS CARE 2/35MIN Diagnoses Multifocal pneumonia J18.[address] R93.89 COPD with emphysema J43.9 Pulmonary cavitary lesion J98.4 Hemoptysis R04.2
[2025-02-06] MEDS ORDERED: VANCOMYCIN LEVEL ONE (11:00)
[2025-02-06] MEDS ORDERED: ALBUT/IPRATROP 3MG/0.5MG NEB 3 ML VIAL NEB PRN (11:32)
[2025-02-06 14:25] VITALS: PULSE 87; RESP 18; O2SAT 98
--- NOTE | 2025-02-06 15:51 | Discharge Summary ---
Discharge Summary Date of Service February 06, 2025 Principal Dx & Hospital Course #1 = Principal Diagnosis (1) Multifocal pneumonia: (2) Abnormal chest CT: (3) COPD with emphysema: (4) Microcytic anemia: (5) Hyponatremia: (6) Hypertension: (7) Diabetes type 2: Plan 69 year old female with PMH significant for DMII, dyslipidemia, COPD, hypertension, and tobacco use who was admitted at [facility] from 02/04-02/06/2025 after a fall at home and was found to have multifocal pneumonia and abnormal CT scan findings. Multifocal pneumonia Abnormal CT scan History of hemoptysis, weight loss, shortness of breath since September 2024 with multiple failed courses of antibiotics/steroids outpatient Following with Dr Guzmán of [facility]monology for abnormal CT scan in November 2024 with repeat imaging scheduled on 02/18/2025 CXR revealed dense right mid and lower lung consolidation favoring pneumonia CTA chest revealed extensive masslike consolidation with cavitation in right lung; large right lower lobe component new from 11/28/2024 favoring necrotizing/cavitary pneumonia with underlying neoplastic process impossible to exclude; unchanged 5mm left upper lobe pulmonary nodule Blood cultures prelim no growth Underwent bronch with lavage and biopsies on 02/05/[address] Burch - he will call patient with results of biopsies when he gets them Patient discharged to home on Augmentin/doxycycline and Mucinex Patient had 2 step test prior to discharge where her pulse ox dropped to 85% with ambulation - discharged with oxygen and instructed to wear 2L O2 with ambulation at home COPD Continue Wixela and Spiriva as prescribed by Dr Guzmán Continue albuterol nebs as needed q4-6 hours for SOB Recommend PFTs as scheduled on 02/18/2025 and follow up with Dr Guzmán as scheduled on 03/05/2025 Microcytic anemia Following with Dr Forbes of [facility]ology for new onset anemia Hgb downtrended to 7.0 on 02/05 so patient received 1 unit PRBC prior to bronch Recommend follow up with Dr Forbes as scheduled on 03/02/2025 Hypertension Continue lisinopril Diabetes Continue metformin Patient seen in collaboration with Dr Bal. Please see addendum. Notes For Next Care Provider 69 year old female with significant PMH who was admitted at [facility] from 02/04- 02/06/2025 after a fall at home and was found to have multifocal pneumonia and abnormal CT scan findings. CT scan revealed new excessive consolidation favoring pneumonia vs underlying neoplastic process. Underwent bronch with lavage and biopsies on 02/05/2025. Dr Burch of Pulmonology will follow up with patient when he receives biopsy results. Patient discharged on home oxygen and antibiotics. Recommend follow up with [facility] as scheduled including PFTs and repeat CT scan as well as follow up with [facility] as scheduled all in February. Medication Changes From Visit Augmentin 875mg PO bid x4 weeks Doxycycline 100mg PO bid x7 days Mucinex DM PO bid x5 days Admission HPI Per Admitting Provider Past medical history of COPD on Wixela/Spiriva, hypertension, type 2 diabetes, chronic smoker. Patient has symptoms of fatigue, cough and decreased appetite which is started in of this year; was treated with course of antibiotic/steroid; her cough returns after completion of antibiotics/steroids. She was again treated with another course of antibiotic in October. She underwent CT scan in November,; findings are below "Above imaging findings of patchy areas of consolidation scattered within right lung with mild bronchiectatic changes and scattered area of atelectatic bands and mildly enlarged mediastinal and hilar lymph nodes are likely keeping with infective in etiology. Interval development of another nodule/nodular infiltrate of 8 mm in right lower lobe, could be due to ongoing infection-probably benign. Possible nodular thickening along right para- mediastinal region, likely infective/extension of consolidation. Other less likely possibility of suspicious infrahilar lymph node cannot be entirely excluded. Clinical, relevant labs, sputum/ analysis correlation for further evaluation. Short interval follow up CT at 3 months is also advised to look for interval resolution She was again treated with another course of antibiotics in December and was referred to pulmonology and oncology. Seen by oncology for anemia/unintentional weight loss on 01/21/2025; patient has issues with bronchitis and pneumonia since October 2024; has been treated with antibiotic and steroid for at least 3 times. She was then seen by pulmonology again; discussed follow-up in [address] scan, PFT; possible PET/CT scan. She was again prescribed another course of antibiotics. She presents again today with reports of feeling dizzy and lightheaded and had a fall. She was found to be hypotensive and hypoxic on presentation. She underwent chest x-ray concerning for right-sided pneumonia. She underwent CTA chest; found to have extensive masslike consolidation with cavitation seen in r ight lung extending from apex to the base along the major fissure and in the paramediastinal region. Large right lower lobe component seen on 11/28/2024.Patient also reports hemoptysis which started several months back; continues to persist. She was found to have leukocytosis, hemoglobin of 7.4 (hemoglobin of 8.4 on 01/21), hyponatremia, elevated lactic acid. Patient was given dose of cefepime a nd was referred for admission. Admission Exam Per Admitting Provider Constitutional: Alert oriented x 3; not in distress. Appears comfortable at Respiratory: Bilateral decreased air entry; no breath sounds in right middle lung field Cardiovascular: RRR, no murmur, no edema Vessels: no JVD or carotid bruit Chest: normal inspection of chest Abdomen: normal bowel sounds, soft, nontender, no hepatosplenomegaly Musculoskeletal: no cyanosis or clubbing, extremities motor strength 5/5 Skin: no rashes, warm and dry normal turgor Neurologic: PERRL, EOMI, accommodation nl, no face palsy, no dysarthria CN's II- XI intact bilaterally and moves all extremities Psychiatric: A+Ox3, euthymic affect Discharge Exam General/Psych: frail, sitting up in bed, NAD, conversing easily Head: normocephalic, atraumatic Eyes: normal inspection, PERRL, conjunctivae pink ENT: external ear and nose normal, oropharynx normal Neck: normal visual inspection, trachea midline Respiratory: normal respiratory effort, lungs diminished with crackles appreciated, no accessory muscle use Cardiovascular: regular rate and rhythm, no murmur/rub/gallop, no JVD Extremities: no cyanosis or clubbing, normal peripheral pulses, no BLE edema Abdomen/GI: normal bowel sounds, soft, nontender Neurologic/MSK: A+Ox3, motor strength 5/5, moves all extremities Skin: no rashes, normal color, warm and dry Updated Medication List Medication Instructions Recorded Confirmed Type albuterol sulfate 0.63 mg/3 mL 0.63 mg inhalation UD PRN sob 02/04/25 02/04/25 History solution for nebulization albuterol sulfate 90 mcg/actuation 1 puff inhalation Q6H PRN sob 02/04/25 02/04/25 History aerosol inhaler fluticasone 250 mcg-salmeterol 50 1 inh inhalation BID 02/04/25 02/04/25 History mcg/dose blistr powdr for inhalation gabapentin 300 mg capsule 300 mg PO BID 02/04/25 02/04/25 History lisinopril 40 mg tablet 40 mg PO DAILY 02/04/25 02/04/25 History meloxicam 7.5 mg tablet 7.5 mg PO BID 02/04/25 02/04/25 History metformin 1,000 mg tablet 1,000 mg PO DAILY 02/04/25 02/04/25 History tizanidine 4 mg tablet 4 mg PO Q6H PRN Muscle Spasm 02/04/25 02/04/25 History amoxicillin 875 mg-potassium 1 tab PO Q12H #28 tabs 02/06/25 Rx clavulanate 125 mg tablet dextromethorphan-guaifenesin ER 60 1 tab PO BID #10 tabs 02/06/25 Rx mg-1,200 mg tab,extend release,12hr (Mucinex DM) doxycycline hyclate 100 mg capsule 100 mg PO BID #12 caps 02/06/25 Rx Hospital Stay Data Consultations 02/04/25 14:24 Consult Infectious Diseases Routine Consult Pulmonology Routine Procedures Performed Operation Date: 02/05/25 07:10 Actual Procedures p Bronchoscopy with Bronchoalveolar Lavage and Transbronchial Biopsy, Endobronchial Ultrasound(Not Applicable) - Quita Burch MD, [facility] Diagnostic Imagining Performed Chest X-Ray 02/04/25 10:18 XR chest 1V portable CLINICAL HISTORY: Sepsis. COMPARISON STUDY: Chest CT November 28, 2024. Chest radiograph November 17, 2024. FINDINGS: There is no pneumothorax. A suspected small right pleural effusion is present. Dense right mid and lower lung consolidation has developed since prior chest radiograph and chest CT. Elevation of the right hemidiaphragm has increased. Right upper lobe opacities have improved. Right apical cavity persists. No evidence for pulmonary edema. IMPRESSION: 1. Interval development of dense right mid and lower lung consolidation with evidence for volume loss. This favors pneumonia. However, radiographic follow-up to ensure resolution is recommended to exclude the possibility of an underlying lesion. 2. Interval improvement in upper lobe airspace opacities with residual right apical cavity. 3. Small right pleural effusion. ACT 112: Negative or not required by law. Electronically signed by: Kleber Perez M.D. 02/04/2025 11:[address] 02/04/25 10:20 CT cervical spine wo con CT DOSE: 1232.4 mGy.cm CLINICAL HISTORY: 69 years-old Female with fall. Acute neck trauma status post fall COMPARISON: Head CT CTA chest study of same day TECHNIQUE: Multiple axial CT images of the cervical spine were obtained without contrast. A dose lowering technique was utilized adhering to the principles of ALARA. FINDINGS: Straightening of the normal cervical lordosis. Demineralized appearance of the bones. Prior posterior decompression with posterior interbody rods and screw fusion at C3-C6. No evidence of hardware complication on this study. Moderate to severe intervertebral disc space narrowing at C5-C6 and C6-C7 with moderate anterior bridging osteophytosis at these levels. Moderate multilevel facet arthrosis. No acute fracture or subluxation identified. Suboptimal evaluation of the central canal and neural foramen by CT technique. Emphysema. Thick-walled large cavitary focus of the right lung apex with loculated right pleural effusion. Mild wall thickening of the proximal esophagus . The visualized lung apices appear clear. IMPRESSION: 1. No acute cervical spine fracture or subluxation. 2. Degenerative and postoperative changes of the cervical spine as above. 3. Please refer to the same day CTA of the chest for discussion of the pulmonary findings. ACT 112: Negative or not required by law. The above report was generated using voice recognition software. It may contain grammatical, syntax or spelling errors. Electronically signed by: Ger Salinas M.D. 02/04/2025 12:[address] 02/04/25 10:20 CT SCAN OF THE BRAIN WITHOUT IV CONTRAST CLINICAL HISTORY: Fall. COMPARISON STUDY: None. TECHNIQUE: Unenhanced axial CT scan of the brain was performed from the vertex to the skull base. A dose lowering technique was utilized adhering to the principles of ALARA. FINDINGS: Brain parenchyma: No acute intracranial hemorrhage, midline shift or mass effect is present. Armas-white matter differentiation is preserved. There are no extra- axial fluid collections. There are no findings to suggest acute dural sinus thrombosis or acute territorial infarct. Armas-white matter hypodensities are suggestive of small vessel disease. Ventricles, sulci, cisterns: There is no hydrocephalus. The basal cisterns are patent. Calvarium: No calvarial fractures. Sinuses and mastoids: The visualized paranasal sinuses are clear. The mastoid air cells are well pneumatized. Orbits: The bony orbits are grossly intact. IMPRESSION: 1. No acute intracranial findings. 2. No calvarial fractures. ACT 112: Negative or not required by law. Electronically signed by: Kleber Perez M.D. 02/04/2025 11:54 AM Chest CTA 02/04/25 11:25 CT ANGIOGRAM OF THE CHEST CLINICAL HISTORY: Fall. Dyspnea. Pneumonia. COMPARISON STUDY: Chest CT scans dated 11/28/2024 and 1210 and 19. Chest x-ray dated 02/04/2025. TECHNIQUE: Following the IV administration of 59 cc of Optiray 320, CT angiogram of the chest was performed from the upper abdomen to the thoracic inlet utilizing the pulmonary embolus protocol. Images are reviewed in the axial, sagittal, and coronal planes. 3-D MIPS images are created and assessed. IV contrast was administered without complication. A dose lowering technique was utilized adhering to the principles of ALARA. There is streak artifact from the right arm which could not be elevated of the chest. There is also mild motion artifact. FINDINGS: Thyroid: Imaged portions of the thyroid gland are normal in size and attenuation. Thoracic aorta: There is atherosclerotic calcification of the thoracic aorta, which is normal in caliber and demonstrates standard 3-vessel arch anatomy. No dissection is seen. Pulmonary vasculature: The pulmonary trunk is normal in caliber. There are no filling defects identified in main, lobar, or segmental pulmonary branches to suggest pulmonary embolus. Heart: The heart is normal in size and without pericardial effusion. The coronary arteries are densely calcified. Lungs and pleural spaces: Evaluation of the lung parenchyma is modestly degraded by motion artifact. There is moderate emphysematous change. The trachea and central airways are clear. There is multiloculated appearing masslike consolidation throughout the right lung with cavitation and pockets of necrosis/fluid which extends from the lung base to the apex along the major fissure and in the paramediastinal region A loculation at the right apex measures approximately 7.5 x 6 x 4 cm and is similar in appearance to the 11/28/2024 examination. Paramediastinal consolidation cavitation is has somewhat increased from previous, and masslike consolidation extending into the right lower lobe along the major fissure is new from 11/28/2024. This measures approximately 14 x 8 x 7 cm in aggregate dimension. A subpleural focus of cavitary consolidation in the right upper lobe on image #174 has decreased in size from 11/28/2024. This measures approximately 3 x 1.5 cm. There is associated soft tissue thickening in the right hilar region. There are scattered calcific granulomas. There is trace pleural fluid right lung base. No airspace consolidation is seen in the left lung. A 5 mm left upper lobe pulmonary nodule on image #160 is unchanged. Mediastinum: There are calcified subcarinal nodes. No discrete lymphadenopathy is seen. Maritza: Enlarged right hilum measuring up to 11 mm short axis. No left hilar adenopathy is seen. Axillae: There is no axillary lymphadenopathy. Upper abdomen: Partially visualized upper abdominal viscera is within normal limits. Skeletal structures: The skeletal structures are osteopenic. Degenerative change and mild hyperkyphosis is noted in the thoracic spine. No lytic or blastic bony lesions are seen. IMPRESSION: 1. There is no evidence of pulmonary embolus in the main, lobar, or segmental pulmonary arteries. 2. Emphysema. 3. Extensive masslike consolidation with cavitation is seen in the right lung extending from the apex to the base along the major fissure and in the paramediastinal region as detailed above. A large right lower lobe component is new from 11/28/2024, in the appearance/time course favors a necrotizing/cavitary pneumonia. An underlying neoplastic process would be impossible to exclude. Pulmonology evaluation is advised, and follow-up to resolution is recommended. 4. A separate focus of cavitary consolidation in the right upper lobe seen on 11/28/2024 has decreased in size from previous. 5. No airspace consolidation is seen in the left lung. 6. A 5 mm left upper lobe pulmonary nodule is unchanged. 7. Additional findings as above. ACT 112: Negative or not required by law. Electronically signed by: Stef Ovalle M.D. 02/04/2025 12:19 PM Chest X-Ray 02/05/25 15:11 XR chest 1V portable HISTORY: 69 years-old Female Post Bronchoscopy COMPARISON: Chest radiograph and CTA chest 02/04/2025 TECHNIQUE: AP view of the chest FINDINGS: Cardiomediastinal and hilar silhouettes are unchanged. Emphysema. The left lung is generally clear. No definite pneumothorax. Right pleural effusion redemonstrated. There is progressive peripheral consolidation throughout the right lung, since yesterday's study this is most pronounced within the right lung apex. Right apical cavity persists. Bones appear grossly intact. IMPRESSION: 1. Persistent multifocal peripheral predominant airspace opacities throughout the right lung favoring multifocal pneumonia. Since yesterday's study this has most progressed within the right upper lobe. 2. Emphysema with right apical cavity redemonstrated. 3. No definite pneumothorax identified. ACT 112: Negative or not required by law. The above report was generated using voice recognition software. It may contain grammatical, syntax or spelling errors. Electronically signed by: Ger Salinas M.D. 02/05/2025 3:47 PM Chest X-Ray 02/06/25 07:00 EXAM: XR chest 1V portable CLINICAL HISTORY: F/u. TECHNIQUE: An X-ray image of the chest is obtained in AP portable projection. COMPARISON: 02/04/2025. FINDINGS: Pulmonary Parenchyma: Collapse-consolidation in the periphery of the right mid and lower zones, obscuring the costophrenic recess, likely pleural effusion. Left lung and CP angle clear. A small atelectatic band seen traversing in the right mid zone. Thin lines in the right lung seen likely artefacts. Heart and Mediastinum: Heart size and shape are normal. No mediastinal widening or masses. No hilar or mediastinal lymphadenopathy. Bony Thorax: Bony thorax appears intact without fractures or deformities. Internal fixation in cervical spine. Soft Tissues: Soft tissues overlying the chest wall are unremarkable. IMPRESSION: 1. Collapse-consolidation in the periphery of the right mid and lower zones, obscuring the costophrenic recess, likely pleural effusion. 2. A small atelectatic band seen traversing in the right mid zone. 3. No significant interval changes compared to prior study. Electronically signed by Owen Mcfadden 02-06-2025 08:06 AM Pending Results Patient Have Any Pending Studies at Discharge: Yes Discharge Instructions Given to Patient (Per Discharging Provider) You presented to the hospital with shortness of breath, coughing up blood, and weight loss for a few months that was not improving with multiple rounds of antibiotics and steroids. We performed a CT scan of your chest that showed new (since your previous CT scan that was done outpatient) extensive filling of the lung in place of where air normally is. The filling could be because of infection like pneumonia or possibly a mass. You had a bronchoscopy where a thin tube was inserted into your airways and your lungs were washed out to clear up a lot of mucus. Biopsies, or tissue samples, of the lungs were obtained and will take a few weeks to result back. Dr. Burch, the photography editor who performed the bronchoscopy, will call you with the results when he gets them. You will need to take three new medications at home, including two antibiotics, and a medicine to break up mucus. You had a walking test to check your oxygen levels with activity, and it was determined that you need 2 liters of oxygen with activity at home. You were provided with oxygen to take home. It is very important that you avoid smoking while wearing oxygen. We also advise that you stop smoking to help your lung condition. MEDICATION CHANGES: START Augmentin 875mg by mouth twice daily for 4 weeks (last day 03/05/25) - take with food to prevent stomach upset START Doxycycline 100mg by mouth twice daily (last dose 02/12/25 in the am) - take with food to prevent stomach upset and avoid getting sunburned START Mucinex DM one tablet by mouth twice daily for 5 days (last day 02/11/25) CONTINUE Wixela and Spiriva as discussed with Dr Guzmán outpatient. You may continue to do albuterol nebulized treatments every 4-6 hours as needed for shortness of breath SUMMARY OF TEST RESULTS: Head CT normal Cervical spine CT scan with degenerative changes and intact hardware from cervical fusion Chest CT scan with excessive consolidation as discussed above Chest x-ray with slight improvement after bronchoscopy compared to before bronchoscopy PENDING TEST RESULTS: Lung biopsies - Dr Burch will call you when he receives these results Blood cultures preliminary negative so far RECOMMENDATIONS FOR FOLLOW-UP: Please follow up with Dr Pedraza on 02/10/25 at 1:40pm to discuss this hospitalization and to follow up on your final blood culture results Please keep your appointment for your follow up CT scan as scheduled on 02/18/25 Please follow up with Dr Guzmán as scheduled on 03/02/25 OTHER INSTRUCTIONS: Seek medical attention if you have: * temperature above 101 * chest pain or trouble breathing * abdominal pain, nausea, vomiting * diarrhea, dark stools or bloody stools * any unanswered questions or concerns Call 911 if symptoms are severe. It has been a pleasure taking care of you. Please take care of yourself. If you have any questions regarding your recent hospitalization please contact [facility] and request Yoselyn Darling @ [phone]. Total Time Total Time Spent Total Time Spent (In Minutes): I spent a total of 35 minutes coordinating, documenting and providing care for this patient excluding time spent in the performance of separately billed services or time spent by another provider/QHP. Supervising Physician Co-Signing Physician Notes Patient seen. Agree with findings and plans as detailed by Donna GENAO
--- NOTE | 2025-02-08 14:37 | Coding Query ---
SEPSIS To promote full compliance with coding requirements relating to patient care, physician participation is requested in all cases of steward/stewardess economy class uncertainty. Please assist us with the question(s) below: In responding to this query, please exercise your independent professional judgement. The fact that a question is asked does not imply that any particular answer is desired or expected. We appreciate your clarification on this issue. Throughout the medical record, you have clearly documented a localized infection and your patient has clinical evidence of a generalized sepsis or severe sepsis. The term urosepsis is a nonspecific entity and is coded as an UTI. If the patient has sepsis, severe sepsis, from an urinary source or some other source, please clarify in your response below. The medical record reflects the following clinical findings: Pt admitted with Pneumonia, acute hypoxic respiratory failure. BAL/bronchoscopy during this admission. H/P mentioned Sepsis Please check below . Thank you! DOUG Beltran [facility] ____ ( )Bacteremia (Nonspecific laboratory finding of bacteria in the blood) Specify Organism ( ) Present on Admission ( ) Not present on admission ( ) Unable to clinically determine ( ) Septicemia (Systemic disease associated with the presence of pathogenic microorganisms in the blood): Specify Organism ( ) Present on Admission ( ) Not present on admission ( ) Unable to clinically determine ( ) Sepsis Specify Organism Specify Associated Condition/Diagnosis ( ) Present on Admission ( ) Not present on admission ( ) Unable to clinically determine ( x) Severe Sepsis (Sepsis associated with acute organ dysfunction) Specify Organism Specify Associated Condition/Diagnosis - Acute respiratory failure with hypoxia ( x) Present on Admission ( ) Not present on admission ( ) Unable to clinically determine ( ) Septic Shock (Severe sepsis with acute circulatory failure, unexplained by other causes) ( ) Present on Admission ( ) Not present on admission ( ) Unable to clinically determine ( ) Other, patient has: MTDD
[2025-02-12 17:07] LABS: Histoplasma H Band Ab Negative (Negative); Histoplasma M Band Ab Negative (Negative)
== END 2025-02-06 14:52 | disposition home health service (06) | DRG 853 ==
LOC: ED 10:07 → SUATTDRO 14:25 → 2E 14:25